=== PATIENT | female | born 1940 | race Caucasian/White ===

== ENCOUNTER → 2017-08-31 | Outpatient (CLI) | payer MEDICARE, OTHER ==
[~2017-08-31] MED LIST: ASPI-484 PO; BUDE180A IH; CHOL400T12 PO; CITA40TA5 PO; GABA300C10 PO; HYDR-926 PO; METF500T5 PO; MULT1TAB52 PO; OMEG-88 PO; VALS1TAB25 PO; VENL75CA6 PO
== END | disposition home or self-care (01) ==
LOC: NPLAB 12:30
PROVIDERS: ATTEND Nurse Practitioner Family
DX: E11.9 Type 2 diabetes mellitus without complications (principal)
CPT/HCPCS: 83036

== ENCOUNTER → 2017-12-08 | Outpatient (CLI) | payer MEDICARE, OTHER | END | disposition home or self-care (01) | LOC: LAB 12:25 | PROVIDERS: ATTEND Family Medicine | DX: E11.9 Type 2 diabetes mellitus without complications (principal); Z90.710 Acquired absence of both cervix and uterus; Z79.4 Long term (current) use of insulin | CPT/HCPCS: 83036 ==

== ENCOUNTER 2018-04-13 11:13 | Emergency (ER) | payer MEDICARE, OTHER ==
[~2018-04-13] VITALS: Ht 170.2 cm; Wt 66.2 kg
[~2018-04-13 11:13] MED LIST changes: +HYDR-3468 PO; -HYDR-926 PO; +METF500T17 PO; -METF500T5 PO
[2018-04-13 11:33] VITALS: BP 156/72
--- NOTE | 2018-04-13 11:33 | ER.PDOC ---
General Chief Complaint: Requesting Medical Care Stated Complaint: POSSIBLE BLOOD CLOT TRAVEL OUT OF US: No Time seen by MD: 11:44 Source: patient Exam Limitations: no limitations History of Present Illness Timing/Duration: 1 week Severity: mild Modifying Factors: improves with immobilization, improves with medication, improves with movement, improves with rest Allergies: Coded Allergies: Penicillins (Verified Allergy, Unknown, unknown, 04/13/18) Home Meds Reported Medications Aspirin (ASPIR 81) 81 Mg Tablet.dr, 81 MG PO DAILY 02/23/14 [place]-3S/Dha/Epa/Fish Oil/D3 (Fish Oil + D3 Softgel) 1 Each Capsule, 1 EACH PO DAILY, CAPSULE 02/23/14 Citalopram Hydrobromide (CITALOPRAM HBR) 40 Mg Tablet, 40 MG PO DAILY, TABLET 02/23/14 Valsartan/Hydrochlorothiazide (VALSARTAN-HCTZ 80-12.5 MG TAB) 1 Each Tablet, 1 EACH PO DAILY, TABLET 02/23/14 Budesonide (PULMICORT FLEXHALER) 180 Mcg Aer.pow.ba, 180 MCG IH PRN PRN for SHORTNESS OF BREATH 02/23/14 Gabapentin (GABAPENTIN) 300 Mg Capsule, 300 MG PO QID, CAPSULE 02/23/14 Multivitamin (MULTIVITAMINS) 1 Each Tablet, 1 EACH PO DAILY, TABLET 02/23/14 Cholecalciferol (Vitamin D3) (VITAMIN D-400) 400 Unit Tablet, 400 UNIT PO DAILY , TABLET 02/23/14 Venlafaxine Hcl (VENLAFAXINE HCL ER) 75 Mg Cap.er.24h, 75 MG PO DAILY 02/23/14 Hydrocodone Bit/Acetaminophen (NORCO 5-325 TABLET) 1 Each Tablet, 1 EACH PO TID PRN for PAIN, TABLET 02/23/14 Metformin Hcl (METFORMIN HCL) 500 Mg Tablet, 500 MG PO BID, TABLET 02/23/14 Past Medical History Medical History: diabetes Surgical History: cancer surgery, hysterectomy LMP (females 10-50): postmenopause Social History Smoking: non-smoker Alcohol Use: none Drug Use: none Review of Systems All Other Systems: Reviewed and Negative Physical Exam General Appearance: No Apparent Distress EENT: eyes nml inspection Neck: Non-Tender Respiratory: chest non-tender CVS: reg rate & rhythm Gastrointestinal: Normal Bowel Sounds Back: Normal Inspection Extremities: Pedal Edema, Swelling (L ANKLE), Other Neurologic/Psychiatric: informatics physician II-XII NML as Tested Skin: Normal Color Lymphatic: No Adenopathy Course Vitals & review Data Vital Sign - Last 24 Hours 04/13/18 04/13/18 04/13/18 04/13/18 11:30 11:31 11:33 12:37 Temp 97.6 97.6 97.6 97.6 97.6 97.6 97.6 97.6 Pulse 85 85 85 70 Resp 20 20 20 20 B/P (MAP) 156/72 (100) 120/70 (87) Pulse Ox 98 98 98 O2 Delivery Room Air Room Air Room Air Departure Time of Disposition: 12:22 Disposition: 01 HOME, SELF-CARE Impression: Primary Impression: Gout attack Condition: Stable Referrals: JESSICA RICARDOC (PCP) PRIMARY CARE PROVIDER Duration or Time Spent with Pa: 1 HR YUMIKO GUTHRIE MD Apr 13, 2018 11:33
--- NOTE | 2018-04-13 11:35 | NUR ---
ARRIVAL PATIENT ARRIVED TO ED4 AMBULATORY WITH FAMILY, C/O OF RIGHT FOOT WELLING FOR THE PAST 2 WEEKS, CALLED PCP AND WAS TOLD TO COME TO THE ED TO BE EVALUATED FOR A DVT. 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
[2018-04-13 12:37] VITALS: BP 120/70
--- NOTE | 2018-04-13 12:45 | DIREP ---
PROCEDURE:US DUPLEX EXTREM VEINS UNILATER/LIMITED-LT COMPARISON:None. INDICATIONS:LLE EDEMA TECHNIQUE:The left lower extremity was evaluated utilizing carrillo scale images with segmental compression, color Doppler, and spectral Doppler with respiratory variation and augmentation. FINDINGS: Common femoral vein:Patent Superficial femoral vein:Patent Popliteal vein:Patent Posterior tibial vein:Patent Peroneal vein:Patent Greater saphenous vein:Patent Waveforms: Within normal limits. Edema is identified in the left ankle. CONCLUSION:No evidence of deep venous or superficial venous thrombosis in the left lower extremity. Dictated by: DILIPA Physician on 04/13/2018 at 12:25 PM ld
[2018-04-13 13:00] VITALS: BP 120/64
[2018-04-13 13:14] VITALS: BP 120/64
== END 2018-04-13 13:00 | disposition home or self-care (01) ==
LOC: ER 11:13
DX: M10.9 Gout, unspecified (principal); E11.9 Type 2 diabetes mellitus without complications; Z90.710 Acquired absence of both cervix and uterus; Z79.84 Long term (current) use of oral hypoglycemic drugs; Z79.899 Other long term (current) drug therapy; Z88.0 Allergy status to penicillin
CPT/HCPCS: 99284; 93971

== ENCOUNTER → 2018-06-21 | Outpatient (CLI) | payer MEDICARE, OTHER | END | disposition home or self-care (01) | LOC: NPLAB 14:54 | PROVIDERS: ATTEND Nurse Practitioner Family | DX: E11.9 Type 2 diabetes mellitus without complications (principal) | CPT/HCPCS: 36415; 83036 ==

== ENCOUNTER 2019-11-22 16:30 | Inpatient (IN) | payer MEDICARE, OTHER ==
[~2019-11-22] VITALS: Ht 170.2 cm; Wt 64.9 kg
[~2019-11-22 16:30] MED LIST changes: -ASPI-484 PO; +ASPI-485 PO; +MULT-419 PO; -MULT1TAB52 PO
[2019-11-22 16:35] VITALS: BP 123/74
--- NOTE | 2019-11-22 16:41 | NUR ---
ARRIVAL PATIENT ARRIVED TO ED2 VIA GURNEY BY [facility], C/O OF ABDOMEN PAIN THAT STARTED TODAY, EMS CALLED AND INITIATED A 20G TO THE LEFT AC INFUSING NORMAL SALINE, EMS GAVE ZOFRAN 4MG IV AND IBUPROFEN 800MG BY MOUTH. PATIENT ASSISTED TO [facility], AGRONOMY TECHNICIAN APPLIED AND VITAL SIGNS OBTAINED, DOCTOR MAGDALENA NOTIFIED OF PATIENT ARRIVAL.
[2019-11-22 17:17] LABS: BASOPHIL % 0.2 % (0.0-0.2); EOSINOPHIL % 0.3 % (0.0-5.0); LYMPHOCYTES # 1.38 10^3/uL1 (1.0-4.8); LYMPHOCYTES % 15.2 % (24.0-44.0); MEAN CORP HGB 30.3 pg (26-34); MONOCYTES # 0.7 10^3/uL (0.3-0.8); MONOCYTES % 7.5 % (5.0-12.0); NEUTROPHILS % 76.5 % (41.0-85.0); PLATELET COUNT 226 10^3/uL (150-400); RED CELL DISTRIBUTION WIDTH 15.4 % (11.5-14.5)
[2019-11-22 17:35] LABS: CALCIUM 8.5 mg/dL (8.4-10.5); CARBON DIOXIDE 29.8 mmol/L (20.0-32)
--- NOTE | 2019-11-22 17:59 | ER.PDOC ---
General Chief Complaint: Abdomen Pain Stated Complaint: RIGHT UPPER QUADRANT PAIN Time seen by MD: 17:56 Source: patient Exam Limitations: no limitations History of Present Illness Initial Comments Upper abdominal pain on and off for 1 week, no nausea or vomiting. Severity/Quality: moderate, dullness Radiation: no radiation Associated Symptoms: denies symptoms Exacerbated by: nothing Relieved By: nothing Allergies: Coded Allergies: Penicillins (Verified Allergy, Unknown, unknown, 04/13/18) Home Meds Reported Medications Aspirin (ASPIR 81) 81 Mg Tablet.dr, 81 MG PO DAILY 02/23/14 [place]-3S/Dha/Epa/Fish Oil/D3 (Fish Oil + D3 Softgel) 1 Each Capsule, 1 EACH PO DAILY, CAPSULE 02/23/14 Citalopram Hydrobromide (CITALOPRAM HBR) 40 Mg Tablet, 40 MG PO DAILY, TABLET 02/23/14 Valsartan/Hydrochlorothiazide (VALSARTAN-HCTZ 80-12.5 MG TAB) 1 Each Tablet, 1 EACH PO DAILY, TABLET 02/23/14 Budesonide (PULMICORT FLEXHALER) 180 Mcg Aer.pow.ba, 180 MCG IH PRN PRN for SHORTNESS OF BREATH 02/23/14 Gabapentin (GABAPENTIN) 300 Mg Capsule, 300 MG PO QID, CAPSULE 02/23/14 Multivitamin (MULTIVITAMINS) 1 Each Tablet, 1 EACH PO DAILY, TABLET 02/23/14 Cholecalciferol (Vitamin D3) (VITAMIN D-400) 400 Unit Tablet, 400 UNIT PO DAILY, TABLET 02/23/14 Venlafaxine Hcl (VENLAFAXINE HCL ER) 75 Mg Cap.er.24h, 75 MG PO DAILY 02/23/14 Hydrocodone Bit/Acetaminophen (NORCO 5-325 TABLET) 1 Each Tablet, 1 EACH PO TID PRN for PAIN, TABLET 02/23/14 Metformin Hcl (METFORMIN HCL) 500 Mg Tablet, 500 MG PO BID, TABLET 02/23/14 Vital Signs First Vital Signs Date Time Temp Pulse Resp B/P (MAP) Pulse Ox O2 Delivery O2 Flow Rate FiO2 11/22/19 16:35 98.3 117 20 97 11/22/19 16:35 123/74 (90) Room Air Last Vital Signs Date Time Temp Pulse Resp B/P (MAP) Pulse Ox O2 Delivery O2 Flow Rate FiO2 11/22/19 18:06 98.3 116 20 123/49 (73) 97 Room Air Past Medical History Medical History: CVA/TIA/stroke, diabetes Surgical History: hysterectomy, tonsillectomy Social History Alcohol Use: none Drug Use: none Constitutional: no symptoms reported Respiratory: no symptoms reported Cardiovascular: no symptoms reported Gastrointestinal: see HPI Genitourinary: no symptoms reported Musculoskeletal: no symptoms reported All Other Systems: Reviewed and Negative Physical Exam General Appearance: No Apparent Distress, WD/WN Neck: Non-Tender, Full Range of Motion, Supple, Normal Inspection Respiratory: chest non-tender, lungs clear, normal breath sounds, no respiratory distress, no accessory muscle use Cardiovascular: Normal Peripheral Pulses, Regular Rate, Rhythm, No Edema, No Gallop, No JVD, No Murmur Gastrointestinal: Normal Bowel Sounds, No Organomegaly, No Pulsatile Mass, Guarding, Tenderness (mild upper abdomen) Back: Normal Inspection, No CVA Tenderness, No Vertebral Tenderness Extremities: Normal Range of Motion, Non-Tender, Normal Inspection, No Pedal Edema, No Calf Tenderness, Normal Capillary Refill, Pelvis Stable Neurologic/Psychiatric: algologist II-XII NML as Tested, No Motor/Sensory Deficits, Alert, Normal Mood/Affect, Oriented x 3 Skin: Normal Color, Warm/Dry Results/Orders Results/Orders Vital Signs Date Time Temp Pulse Resp B/P (MAP) Pulse Ox O2 Delivery O2 Flow Rate FiO2 11/22/19 18:06 98.3 116 20 123/49 (73) 97 Room Air 11/22/19 16:35 98.3 117 20 123/74 (90) 97 Room Air 11/22/19 16:35 98.3 117 20 11/22/19 16:35 98.3 117 20 97 Laboratory Tests Test 11/22/19 17:10 11/22/19 18:18 White Blood Count 9.1 10^3/uL (4.5-11.0) Red Blood Count 2.84 10^6/uL (4.00-5.20) L Hemoglobin 8.6 g/dL (12.0-15.0) L Hematocrit 24.4 % (36.0-46.0) L Mean Corpuscular Volume 85.9 fL (78-100) Mean Corpuscular Hemoglobin 30.3 pg (26-34) Mean Corpuscular Hemoglobin Concent 35.2 g/dL (33-36.5) Red Cell Distribution Width 15.4 % (11.5-14.5) H Platelet Count 226 10^3/uL (150-400) Mean Platelet Volume 8.2 fL (7.8-11.0) Neutrophils (%) (Auto) 76.5 % (41.0-85.0) Lymphocytes (%) (Auto) 15.2 % (24.0-44.0) L Monocytes (%) (Auto) 7.5 % (5.0-12.0) Neutrophils # (Auto) 7.0 10^3/uL (1.8-7.7) Lymphocytes # (Auto) 1.38 10^3/uL1 (1.0-4.8) Monocytes # (Auto) 0.7 10^3/uL (0.3-0.8) Absolute Immature Granulocyte (auto 0.03 10^3 u/L (0-2) Absolute Eosinophils (auto) 0.0 10^3/uL (0.0-0.2) Immature Granulocytes % 0.30 % (0.00-0.50) Eosinophils % 0.3 % (0.0-5.0) Basophils % 0.2 % (0.0-0.2) Basophils # 0.0 10^3/uL (0.0-0.1) Prothrombin Time 10.1 SEC (9.3-11.3) Prothrombin Time INR (Non-Therap) 1.0 Activated Partial Thromboplast Time 21.4 SEC (24.67-30.72) Sodium Level 130 mmol/L (132-145) L Potassium Level 3.5 mmol/L (3.6-5.2) L Chloride Level 93.0 mmol/L (96-109) L Carbon Dioxide Level 29.8 mmol/L (20.0-32) Anion Gap 10.7 Blood Urea Nitrogen 15 mg/dL (7-18) Creatinine 1.33 mg/dL (0.59-1.40) Estimated GFR () 46.7 (>/=60) Est GFR (CKD-EPI)(Non-Afr [place]) 38.6 (>/=60) BUN/Creatinine Ratio 11.0 Glucose Level 187 mg/dL (70-110) H Calcium Level 8.5 mg/dL (8.4-10.5) Total Bilirubin 0.5 mg/dL (0.2-1.0) Aspartate Amino Transferase (AST) 11 U/L (0-35) Alanine Aminotransferase (ALT) 15 U/L (12-78) Alkaline Phosphatase 74 U/L (50-136) Total Protein 6.1 g/dL (6.4-8.2) L Albumin 3.0 g/dL (3.4-5.0) L Globulin 3.1 Amylase Level 32 U/L (25-115) Lipase 93 U/L (114-286) L Helicobacter pylori Screen POSITIVE (NEGATIVE) Urine Collection Type VOID Urine Color STRAW (YELLOW) Urine Appearance CLEAR (CLEAR) Urine Bilirubin NEGATIVE MG/DL (NEGATIVE) Urine Ketones NEGATIVE (NEGATIVE) Urine Specific [place] 1.005 (1.005-1.035) Urine pH 8.0 (5.0-6.0) Urine Protein NEGATIVE (NEGATIVE) Urine Urobilinogen NEGATIVE (NEGATIVE) Urine Nitrate NEGATIVE (NEGATIVE) Urine Leukocyte Esterase NEGATIVE (NEGATIVE) Urine Blood 50 2+ (NEGATIVE) H Urine RBC 0-2 RBC/HPF (NONE SEEN) Urine WBC 0-2 WBC/HPF (0-2) Urine Squamous Epithelial Cells RARE #/HPF (FEW) Urine Bacteria NONE SEEN (NONE SEEN) Urine Glucose NORMAL (NEGATIVE) Progress Progress Care of patient transferred to Dr. Chu at 7pm Consult/PCP Time Consult/PCP Called: 20:11 Consult/PCP: Dr. Haddad Reason/Comments: will admit observation Departure Time of Disposition: 20:11 Disposition: 09 ADMITTED INPATIENT Impression: Primary Impression: Duodenitis Condition: Stable Referrals: JESSICA RICARDO-C (PCP) PRIMARY CARE PROVIDER Duration or Time Spent with Pa: 10 min KEMI NICHOLS MD Nov 22, 2019 17:59 DARON CHU DO Nov 22, 2019 20:12
[2019-11-22 18:06] VITALS: BP 123/49
--- NOTE | 2019-11-22 18:12 | NUR ---
CAT SCAN PATIENT TO AND FROM CAT SCAN WITH LON FROM RADIOLOGY.
--- NOTE | 2019-11-22 18:13 | NUR ---
UA UA COLLECTED AND SENT TO LAB.
[2019-11-22 18:32] LABS: APPEARANCE,URINE CLEAR (CLEAR); BILIRUBIN,URINE NEGATIVE (NEGATIVE); UA COLOR STRAW (YELLOW)
[2019-11-22 18:33] LABS: UROBILINOGEN,URINE NEGATIVE (NEGATIVE)
--- NOTE | 2019-11-22 19:04 | DIREP ---
PROCEDURE:CT ABD/PELVIS WITH CONTRAST TECHNIQUE:No oral contrast was given. CT abdomen pelvis with contrast. The images were viewed at lung and soft tissue settings. Sagittal and coronal reconstructions are provided. COMPARISON:None. INDICATIONS:ABD PAIN FINDINGS: LOWER CHEST:Emphysematous changes in the lung bases. Right basilar atelectasis. LIVER:Normal. BILIARY:Post cholecystectomy. PANCREAS:Atrophy. SPLEEN:Normal. URINARY TRACT:Left renal cyst measuring 1.6 cm. Multiple other cysts, some which are too small to adequately characterize. ADRENALS:Normal. AORTA/VASCULAR:Atherosclerotic disease of the aorta and its major branches. RETROPERITONEUM:Normal. BOWEL/MESENTERY:Large stool burden in the rectum suggesting impaction. Circumferential wall thickening of the proximal stomach. Wall thickening of the gastro duodenal junction and descending duodenum consistent with duodenitis. CT evaluation of the stomach and proximal duodenum is limited and follow-up to resolution is recommended to exclude neoplasm. Proximal duodenal diverticulum is seen. If necessary endoscopy could be performed. The appendix is not seen. Evaluation of bowel is limited without oral contrast. ABDOMINAL WALL:Normal. PELVIS:Post hysterectomy. Collapsed bladder. BONES:Anterolisthesis of L4 on L5 measuring 2 mm. Degenerative changes in the spine. Internal fixation of the left hip. Old healed fracture in the left superior and inferior pubic ramus. Fracture lines are still visible, correlate with clinical presentation and timeline, this could suggest either poor healing or acute on chronic fractures. OTHER:Normal. CONCLUSION: 1. Wall thickening with surrounding fat stranding of the gastro duodenal junction and proximal duodenum consistent duodenitis or inflammatory/infectious process. Evaluation of the stomach and proximal duodenum is limited on CT and follow-up to resolution is recommended to exclude neoplasm. 2. Large stool burden the rectum consistent with impaction. 3. Old healing fractures in the superior and inferior pubic ramus. Fracture lines are still visible with surrounding callus formation, this could either suggest subacute healing fracture, acute on chronic fracture, or poor healing. Correlate with clinical timeline of trauma. 4. Other findings as above. Dictated by: Dariusz Haddad MD on 11/22/2019 at 06:53 PM
--- NOTE | 2019-11-22 19:15 | PCM.EKG ---
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
--- NOTE | 2019-11-22 19:37 | NUR ---
Assisted to bedside commode and voided without difficulty. Reports she was "a little dizzy" prior to transferring from [facility] [place] [facility] Had pt sit up on bedside for a few minutes until dizziness subsided.
[2019-11-22 19:41] VITALS: BP 123/66
--- NOTE | 2019-11-22 20:30 | NUR ---
MS ROOM 328. REPORT TO BRANDON WALKER RN. PT CARE RELINQUISHED. Addendum: 11/22/19 at 2240 by LISA REPORT TIME 2229
[2019-11-22 20:41] VITALS: BP 112/60
[2019-11-22] MEDS ORDERED: TYLENOL PO PRN (21:00)
[2019-11-22] MEDS ORDERED: ZOFRAN IV PRN (21:00)
[2019-11-22] MEDS ORDERED: ZOFRAN IV STA (21:11)
[2019-11-22] MEDS ORDERED: MORPHINE SULFATE IV STA (21:11)
[2019-11-22] MEDS ORDERED: FLAGYL 500MG/ 100 ML NS 100 ML IV ONE (21:14)
[2019-11-22] MEDS ORDERED: ZOFRAN ONE (21:15)
[2019-11-22] MEDS ORDERED: MORPHINE SULFATE ONE (21:15)
[2019-11-22] MEDS: FLAGYL 500MG/ 100 ML NS 100 ML IV SCH (21:35)
[2019-11-22 21:41] VITALS: BP 112/65
--- NOTE | 2019-11-22 21:49 | PCM.HP ---
History of Present Illness Reason for Visit: (1) H. pylori duodenitis ICD Code: K29.80 - Duodenitis without bleeding; B96.81 - Helicobacter pylori [H. pylori] as the cause of diseases classified elsewhere SNOMED: 749638780 (2) Duodenitis ICD Code: K29.80 - Duodenitis without bleeding SNOMED: 27022979 (3) Fecal impaction in rectum ICD Code: K56.41 - Fecal impaction SNOMED: 60782834 Hx of Present Illness Upper abdominal pain on and off for 1 week. Patient states that she has not been eating or drinking well today. She states that she passed stool around 3:[address] scan since she has a fecal impaction so she is likely passing stool around the impaction. Patient is familiar with what H. pylori he has but she does not recall being diagnosed or treated for an H. pylori infection her H. pylori screen is positive we will treat empirically with antibiotics and will cover duodenitis and H. pylori. Patient will need follow-up EGD outpatient once infection is treated to biopsy for cure of H. pylori and evaluate further for potential neoplasm given bowel wall thickening. We discussed use of an enema tonight to help clear her fecal impaction Travel History EBOLA RISK:Travel to/contact w: No Review of Systems Constitutional: No: Fever, Chills, Sweats, Weakness, Malaise, Other Eyes: No: Pain, Vision change, Conjunctivae inflammation, Eyelid inflammation, Other, Redness ENT: No: Ear pain, Ear discharge, Nose pain, Nose discharge, Nose congestion, Mouth pain, Mouth swelling, Throat pain, Throat swelling, Other Respiratory: No: Cough, Dry, Shortness of breath, SOB with excertion, Wheezing, Hemoptysis, Pleuritic Pain, Sputum, Wheezing, Other Cardiovascular: No: Chest Pain, Palpitations, Orthopnea, Paroxysmal Noc. Dyspnea, Edema, Lt Headedness, Other Gastrointestinal: Abdominal Pain, Constipation Genitourinary: No Dysuria, No Frequency, No Incontinence, No Hematuria, No R etention, No Other Musculoskeletal: No: other, neck pain, shoulder pain, arm pain, back pain, hand pain, leg pain, foot pain Skin: No: Rash, Lesions, Jaundice, Bruising, Other Neurological: No: Weakness, Numbness, Incoordination, Change in speech, Confusion, Seizures, Other Allergies: Coded Allergies: Penicillins (Verified Allergy, Unknown, unknown, 04/13/18) Scheduled Aspirin (Aspir 81), 81 MG PO DAILY, (Reported) Cholecalciferol (Vitamin D3) (Vitamin D-400), 400 UNIT PO DAILY, (Reported) Citalopram Hydrobromide (Citalopram Hbr), 40 MG PO DAILY, (Reported) Gabapentin (Gabapentin), 300 MG PO QID, (Reported) Metformin Hcl (Metformin Hcl), 500 MG PO BID, (Reported) Multivitamin (Multivitamins), 1 EACH PO DAILY, (Reported) [place]-3S/Dha/Epa/Fish Oil/D3 (Fish Oil + D3 Softgel), 1 EACH PO DAILY, (Reported) Valsartan/Hydrochlorothiazide (Valsartan-Hctz 80-12.5 Mg Tab), 1 EACH PO DAILY, (Reported) Venlafaxine Hcl (Venlafaxine Hcl Er), 75 MG PO DAILY, (Reported) Scheduled PRN Budesonide (Pulmicort Flexhaler), 180 MCG IH PRN PRN for SHORTNESS OF BREATH, (Reported) Hydrocodone Bit/Acetaminophen ([place] 5-325 Tablet), 1 EACH PO TID PRN for PAIN, (Reported) VTE VTE Risk Score VTE Risk: Score 0-1 = Low Risk (Aggressive mobilization; early ambulation; no VTE prophylaxis required) Score 2: Moderate Risk (Intermittent/Pneumatic Compression Device OR Lovenox/Heparin/Coumadin) Score 3-4: High Risk (Intermittent/Pneumatic Compression Device AND Lovenox/Heparin/Coumadin) Score > or =5: Highest Risk (Intermittent/Pneumatic Compression Device AND Lovenox/Heparin/Coumadin) Exam Vital Signs Vital Signs Date Time Temp Pulse Resp B/P (MAP) Pulse Ox O2 Delivery O2 Flow Rate FiO2 11/22/19 18:06 98.3 116 20 123/49 (73) 97 Room Air General Appearance: Alert, Oriented X3 HEENT: Atraumatic, Mucous membr. moist/pink Respiratory: Clear to auscultation Cardiovascular: Regular rate Abdominal: Other (Abdomen is mildly distended but soft she does have tenderness upper epigastric region denies overt chest pain) Extremities: Normal pulses Skin: No breakdown Neuro: Normal speech, Strength at 5/5 X4 ext, Normal tone, Sensation intact, Cranial nerves 3-12 NL Assessment/Plan Assessment/Plan Assessment/Plan Assessment: 79-year-old female with past medical history of hyperlipidemia, diab etes, and hypertension who presents with epigastric pain for several days. She states that she has passed stool today but CT scan after bowel movement shows large fecal impaction. H. pylori blood screen positive in the setting of duodenitis on CT scan with bowel wall thickening. Patient is familiar with what H. pylori he has but she does not recall being diagnosed or treated for an H. pylori infection her. No ischemic changes on EKG troponin is pending at this time Plan: H. pylori screen is positive we will treat empirically with antibiotics and will cover duodenitis and H. pylori. Patient will need follow-up EGD outpatient once infection is treated to biopsy for cure of H. pylori and evaluate further for potential neoplasm given bowel wall thickening. We will treat fecal impaction with enema tonight. Clear liquid diet with IV fluids and advance diet as tolerated. Troponin to rule out cardiac ischemia given epigastric abdominal pain with no clear ischemic changes on EKG Problems: (1) H. pylori duodenitis ICD Code: K29.80 - Duodenitis without bleeding; B96.81 - Helicobacter pylori [H. pylori] as the cause of diseases classified elsewhere SNOMED: 580341331 (2) Fecal impaction in rectum Status: Acute ICD Code: K56.41 - Fecal impaction SNOMED: 03266884 (3) Duodenitis Status: Acute ICD Code: K29.80 - Duodenitis without bleeding SNOMED: 33680887 Patient History: Diabetes mellitus 34 FATHER FH: cancer 32 MOTHER FH: heart attack 34 FATHER RAMILA REYNA MD Nov 22, 2019 21:48
--- NOTE | 2019-11-22 21:58 | NUR ---
DR REYNA IN ROOM WITH PT
[2019-11-22] MEDS ORDERED: DILAUDID IV PRN (22:00)
[2019-11-22] MEDS: BIAXIN PO SCH (22:30)
[2019-11-22] MEDS ORDERED: NS 1000ML/KCL 20MEQ 1,000 ML IV ONE (22:30)
[2019-11-22] MEDS ORDERED: NS 500ML 500 ML IV ONE (22:33)
[2019-11-22] MEDS ORDERED: MAGNESIUM CITRATE PO STA (22:36)
[2019-11-22] MEDS: CIPRO 200 ML IV SCH (22:41)
[2019-11-22 22:50] VITALS: BP 136/61
[2019-11-22] MEDS ORDERED: PHENERGAN IM PRN (23:00)
[2019-11-22] MEDS ORDERED: PHENERGAN ONE (23:13)
[2019-11-22] MEDS ORDERED: NS 25ML 25 ML IV ONE (23:13)
[2019-11-22] MEDS: PROTONIX IV IV SCH (23:44)
[2019-11-23] MEDS ORDERED: PHENERGAN IV PRN (00:30)
[2019-11-23 05:14] VITALS: BP 90/54
[2019-11-23 05:55] LABS: BASOPHIL % 0.3 % (0.0-0.2); EOSINOPHIL # 0.1 10^3/uL (0.0-0.2); LYMPHOCYTES # 1.92 10^3/uL1 (1.0-4.8); LYMPHOCYTES % 20.4 % (24.0-44.0); MEAN CORP HGB 30.4 pg (26-34); MONOCYTES # 0.7 10^3/uL (0.3-0.8); MONOCYTES % 7.4 % (5.0-12.0); NEUTROPHIL # 6.7 10^3/uL (1.8-7.7); NEUTROPHILS % 70.7 % (41.0-85.0); PLATELET COUNT 218 10^3/uL (150-400); RED CELL DISTRIBUTION WIDTH 15.8 % (11.5-14.5)
--- NOTE | 2019-11-23 06:08 | NUR ---
ENEMA PT REFUSED ENEMA TWICE DR REYNA SAID WE WOULD GIVE HER TIME TO THINK ABOUT IT
[2019-11-23 06:11] LABS: CALCIUM 8.9 mg/dL (8.4-10.5); CARBON DIOXIDE 28.7 mmol/L (20.0-32)
--- NOTE | 2019-11-23 07:15 | PCM.EKG ---
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: TG : 1940 Requested By: DARON HERNANDEZ Order Number: [id number] Reading MD: Carmina Hernandez Measurements Intervals [place] Rate: 96 P: 54 MA: 146 QRS: -29 QRSD: 91 T: 35 QT: 417 QTc: 527 Interpretive Statements Sinus rhythm Multiple premature complexes, vent & supraven Borderline left axis deviation Abnormal R-wave progression, late transition Borderline T abnormalities, anterior leads Prolonged QT interval Compared to ECG 11/22/2019 18:59:42 T-wave abnormality now present Electronically Signed On 11-26-2019 7:21:56 CDT by Carmina Hernandez Please click the below link to view image of tracing.
[2019-11-23 07:29] VITALS: BP 98/57
[2019-11-23] MEDS ORDERED: PHENERGAN IM PRN (07:30)
[2019-11-23] MEDS: BIAXIN PO SCH ×2 (08:32→21:47)
[2019-11-23] MEDS: PROTONIX IV IV SCH (08:33)
[2019-11-23] MEDS: FLAGYL 500MG/ 100 ML NS 100 ML IV SCH ×2 (08:33→21:47)
[2019-11-23] MEDS: CIPRO 200 ML IV SCH ×3 (09:43→22:48)
[2019-11-23] MEDS ORDERED: [UNRECOGNIZED DRUG - SUPPLY] RC ONE (10:00)
[2019-11-23] MEDS ORDERED: BISAC-EVAC RC ONE (10:30)
--- NOTE | 2019-11-23 10:30 | NUR ---
DISCHARGE PLAN CASE MANAGEMENT VISITED WITH PT AT BEDSIDE CONCERNING DISCHARGE PLAN AND NEEDS. LIVES AT HOME ALONE. HAS SUPPORTIVE FAMILY. HAS DME INCLUDING WALKER AND SHOWER CHAIR. UTILIZES WALKER FOR AMBULATION. DENIES NEED FOR HOME OXYGEN. CURRENTLY HAS [facility] HH IN PLACE. CM CONTACTED [facility] REGARDING ADMISSION TO THIS FACILITY. PCP IS JESSICA VU DENTAL INSURANCE BILLER AT [facility]. DC PLAN IS TO DC HOME WITH [facility] HH TO FOLLOW. CM LEFT CONTACT INFORMATION AT BEDSIDE. CM WILL CONTINUE TO FOLLOW FOR DC NEEDS.
--- NOTE | 2019-11-23 11:00 | NUR ---
ENEMA PATIENT TOLERATED ENEMA WITH NO S/S OF DISTRESS, EFFECTIVE WITH LARGE BM.
[2019-11-23 12:39] VITALS: BP 100/56
--- NOTE | 2019-11-23 15:54 | PRM.PN ---
Subjective Subjective Date: Nov 23, 2019 Time: 15:51 Subjective Patient was resistant to the idea of utilizing an enema overnight to resolve her fecal impaction we tried oral medications without success this morning and patient then agreed to allow an enema administered by nursing staff. Since the enema she has had excellent stool output and her pain and distention have decreased. She is resting comfortably in bed at the time of my exam Patient History: Diabetes mellitus 33 FATHER FH: cancer 32 MOTHER FH: heart attack 33 FATHER VTE VTE Risk Total Score: 3 VTE Risk Score VTE Risk: Score 0-1 = Low Risk (Aggressive mobilization; early ambulation; no VTE prophylaxis required) Score 2: Moderate Risk (Intermittent/Pneumatic Compression Device OR Lovenox/Heparin/Coumadin) Score 3-4: High Risk (Intermittent/Pneumatic Compression Device AND Lovenox/Heparin/Coumadin) Score > or =5: Highest Risk (Intermittent/Pneumatic Compression Device AND Lovenox/Heparin/Coumadin) Antico:Hep/LMWH/Coum/Xarelto: Yes Mechanical device ordered: Yes Review of Systems Constitutional: No: Fever, Chills, Sweats, Weakness, Malaise, Other Eyes: No: Pain, Vision change, Conjunctivae inflammation, Eyelid inflammation, Other, Redness ENT: No: Ear pain, Ear discharge, Nose pain, Nose discharge, Nose congestion, Mouth pain, Mouth swelling, Throat pain, Throat swelling, Other Respiratory: No: Cough, Dry, Shortness of breath, SOB with excertion, Wheezing, Hemoptysis, Pleuritic Pain, Sputum, Wheezing, Other Cardiovascular: No: Chest Pain, Palpitations, Orthopnea, Paroxysmal Noc. Dyspnea, Edema, Lt Headedness, Other Gastrointestinal: Abdominal Pain, Constipation Genitourinary: No Dysuria, No Frequency, No Incontinence, No Hematuria, No Retention, No Other Musculoskeletal: No: other, neck pain, shoulder pain, arm pain, back pain, hand pain, leg pain, foot pain Skin: No: Rash, Lesions, Jaundice, Bruising, Other Neurological: No: Weakness, Numbness, Incoordination, Change in speech, Confusion, Seizures, Other Allergies: Coded Allergies: Penicillins (Verified Allergy, Unknown, unknown, 04/13/18) Scheduled Aspirin (Aspir 81), 81 MG PO DAILY, (Reported) Cholecalciferol (Vitamin D3) (Vitamin D-400), 400 UNIT PO DAILY, (Reported) Citalopram Hydrobromide (Citalopram Hbr), 40 MG PO DAILY, (Reported) Gabapentin (Gabapentin), 300 MG PO QID, (Reported) Metformin Hcl (Metformin Hcl), 500 MG PO BID, (Reported) Multivitamin (Multivitamins), 1 EACH PO DAILY, (Reported) [place]-3S/Dha/Epa/Fish Oil/D3 (Fish Oil + D3 Softgel), 1 EACH PO DAILY, (Reported) Valsartan/Hydrochlorothiazide (Valsartan-Hctz 80-12.5 Mg Tab), 1 EACH PO DAILY, (Reported) Venlafaxine Hcl (Venlafaxine Hcl Er), 75 MG PO DAILY, (Reported) Scheduled PRN Budesonide (Pulmicort Flexhaler), 180 MCG IH PRN PRN for SHORTNESS OF BREATH, (Reported) Hydrocodone Bit/Acetaminophen ([place]pearl 5-325 Tablet), 1 EACH PO TID PRN for PAIN, (Reported) Objective Vitals and I/O Vital Sign - Last 24 Hours 11/22/19 11/22/19 11/22/19 11/22/19 16:35 16:35 16:35 18:06 Temp 98.3 98.3 98.3 98.3 Pulse 117 117 117 116 Resp 20 B/P (MAP) 123/74 (90) 123/49 (73) Pulse Ox 97 97 97 O2 Delivery Room Air Room Air 11/22/19 11/22/19 11/22/19 11/22/19 19:41 20:41 21:41 22:50 Temp 97.4 Pulse 74 71 74 72 Resp 18 20 18 18 B/P (MAP) 123/66 (85) 112/60 (77) 112/65 (81) 136/61 (86) Pulse Ox 96 95 95 94 O2 Delivery Room Air Room Air Room Air Room Air 11/23/19 11/23/19 11/23/19 11/23/19 05:14 07:14 07:29 09:03 Temp 97.4 98.0 Pulse 77 62 Resp 18 18 B/P (MAP) 90/54 (66) 98/57 (71) Pulse Ox 93 92 O2 Delivery Room Air Room Air Room Air Room Air 11/23/19 11/23/1920 12:39 14:04 14:34 Temp 98.0 Pulse 74 Resp 18 B/P (MAP) 100/56 (71) Pulse Ox 92 O2 Delivery Room Air Room Air Nasal Cannula O2 Flow Rate 2.00 Intake and Output 11/23/19 07:00 Intake Total 100 ml Balance 100 ml General: Alert, Oriented X3 HEENT: Atraumatic, Mucous membr. moist/pink Lungs: Clear to auscultation Heart: Regular rate Abdomen: Normal bowel sounds, Soft, Other (Abdomen is mildly distended but soft she does have tenderness upper epigastric region denies overt chest pain) Extremities: Normal pulses Neuro: Normal speech, Strength at 5/5 X4 ext, Normal tone, Sensation intact, Cranial nerves 3-12 NL All Results(Lab/Rad) Laboratory Tests Test 11/22/19 17:10 11/22/19 18:18 11/22/19 22:33 11/23/19 05:45 White Blood Count 9.1 10^3/uL 9.4 10^3/uL Red Blood Count 2.84 10^6/uL 2.93 10^6/uL Hemoglobin 8.6 g/dL 8.9 g/dL Hematocrit 24.4 % 26.6 % Mean Corpuscular Volume 85.9 fL 90.8 fL Mean Corpuscular Hemoglobin 30.3 pg 30.4 pg Mean Corpuscular Hemoglobin Concent 35.2 g/dL 33.5 g/dL Red Cell Distribution Width 15.4 % 15.8 % Platelet Count 226 10^3/uL 218 10^3/uL Mean Platelet Volume 8.2 fL 8.2 fL Neutrophils (%) (Auto) 76.5 % 70.7 % Lymphocytes (%) (Auto) 15.2 % 20.4 % Monocytes (%) (Auto) 7.5 % 7.4 % Neutrophils # (Auto) 7.0 10^3/uL 6.7 10^3/uL Lymphocytes # (Auto) 1.38 10^3/uL1 1.92 10^3/uL1 Monocytes # (Auto) 0.7 10^3/uL 0.7 10^3/uL Absolute Immature Granulocyte (auto 0.03 10^3 u/L 0.02 10^3 u/L Absolute Eosinophils (auto) 0.0 10^3/uL 0.1 10^3/uL Immature Granulocytes % 0.30 % 0.20 % Eosinophils % 0.3 % 1.0 % Basophils % 0.2 % 0.3 % Basophils # 0.0 10^3/uL 0.0 10^3/uL Prothrombin Time 10.1 SEC Prothrombin Time INR (Non-Therap) 1.0 Activated Partial Thromboplast Time 21.4 SEC Sodium Level 130 mmol/L 131 mmol/L Potassium Level 3.5 mmol/L 3.6 mmol/L Chloride Level 93.0 mmol/L 95.0 mmol/L Carbon Dioxide Level 29.8 mmol/L 28.7 mmol/L Anion Gap 10.7 10.9 Blood Urea Nitrogen 15 mg/dL 13 mg/dL Creatinine 1.33 mg/dL 1.48 mg/dL Estimated GFR () 46.7 41.3 Est GFR (CKD-EPI)(Non-Afr Moroccan) 38.6 34.1 BUN/Creatinine Ratio 11.0 8.0 Glucose Level 187 mg/dL 149 mg/dL Calcium Level 8.5 mg/dL 8.9 mg/dL Total Bilirubin 0.5 mg/dL 0.4 mg/dL Aspartate Amino Transf (AST/SGOT) 11 U/L 12 U/L Alanine Aminotransferase (ALT/SGPT) 15 U/L 17 U/L Alkaline Phosphatase 74 U/L 77 U/L Total Protein 6.1 g/dL 6.2 g/dL Albumin 3.0 g/dL 3.0 g/dL Globulin 3.1 3.2 Amylase Level 32 U/L Lipase 93 U/L Helicobacter pylori Screen POSITIVE Urine Collection Type VOID Urine Color STRAW Urine Appearance CLEAR Urine Bilirubin NEGATIVE MG/DL Urine Ketones NEGATIVE Urine Specific [place] 1.005 Urine pH 8.0 Urine Protein NEGATIVE Urine Urobilinogen NEGATIVE Urine Nitrate NEGATIVE Urine Leukocyte Esterase NEGATIVE Urine Blood 50 2+ Urine RBC 0-2 RBC/HPF Urine WBC 0-2 WBC/HPF Urine Squamous Epithelial Cells RARE #/HPF Urine Bacteria NONE SEEN Urine Glucose NORMAL Troponin I < 0.02 ng/mL Test 11/23/19 07:26 Bedside Glucose 135 Current Medications Medications (Trade) Dose Ordered Sig/Rupali Route PRN Reason Start Time Stop Time Status Last Admin Dose Admin Acetaminophen (Tylenol) 1,000 mg Q6H PRN PO PAIN 1 - 3 11/22/19 21:00 12/22/19 20:59 11/23/19 05:19 Ondansetron HCl (Zofran) 4 mg Q4H PRN IV NAUSEA / VOMITING 11/22/19 21:00 12/22/19 20:59 Metronidazole 100 ml @ 100 mls/hr Q12H IV 11/22/19 21:00 12/22/19 20:59 11/23/19 08:33 Morphine Sulfate (Morphine Sulfate) 4 mg STAT STAT IV 11/22/19 21:11 11/22/19 21:13 DC 11/22/19 21:35 Ondansetron HCl (Zofran) 4 mg STAT STAT IV 11/22/19 21:11 11/22/19 21:13 DC 11/22/19 21:34 Metronidazole 100 ml @ ud STK-MED ONCE IV 11/22/19 21:14 11/22/19 21:16 DC Ondansetron HCl (Zofran) 4 mg STK-MED ONCE .ROUTE 11/22/19 21:15 11/22/19 21:17 DC Morphine Sulfate (Morphine Sulfate) 4 mg STK-MED ONCE .ROUTE 11/22/19 21:15 11/22/19 21:17 DC Hydromorphone HCl (Dilaudid) 0.5 mg Q4H PRN IV PAIN 7 - 10 11/22/19 22:00 11/23/19 09:54 DC Potassium Chloride/Sodium Chloride 1,000 ml @ 100 mls/hr Q10H ONCE IV 11/22/19 22:30 11/23/19 08:29 DC 11/22/19 23:48 Clarithromycin (Biaxin) 500 mg BID PO 11/22/19 22:30 12/22/19 22:29 11/23/19 08:32 Pantoprazole Sodium (Protonix Iv) 40 mg DAILY IV 11/22/19 22:30 12/22/19 22:29 11/23/19 08:33 Sodium Chloride 500 ml @ ud STK-MED ONCE IV 11/22/19 22:33 11/22/19 22:35 DC Magnesium Citrate (Magnesium Citrate) 150 ml STAT STAT PO 11/22/19 22:36 11/23/19 00:27 DC 11/22/19 23:44 Promethazine HCl (Phenergan) 25 mg BID PRN IM NAUSEA/VOMITING 11/22/19 23:00 8/14/20 00:09 DC Sodium Chloride 25 ml @ ud STK-MED ONCE IV 11/22/19 23:13 11/22/19 23:14 DC Promethazine HCl (Phenergan) 25 mg BID PRN IV NAUSEA/VOMITING 11/23/19 00:30 11/23/19 07:12 DC 11/22/19 23:20 Promethazine HCl (Phenergan) 25 mg STK-MED ONCE .ROUTE 11/22/19 23:13 11/23/19 00:09 DC Promethazine HCl (Phenergan) 25 mg BID PRN IM NAUSEA/VOMITING 11/23/19 07:30 12/23/19 07:29 Glycerin (Sani-Supp) 1 each OT ONCE RC 11/23/19 10:00 11/23/19 10:02 DC Bisacodyl (Bisac-Evac) 10 mg OT ONCE RC 11/23/19 10:30 11/23/19 10:31 DC 11/23/19 11:14 Course Sepsis Screening Results: Posi: NEGATIVE Sepsis Qualifier/Stage: NO DEFINITE RISK Duration or Total Time Spent w: 10 min Vitals & review Data Vital Sign - Last 24 Hours 11/22/19 11/22/19 11/22/19 11/22/19 16:35 16:35 16:35 18:06 Temp 98.3 98.3 98.3 98.3 Pulse 117 117 117 116 Resp 20 20 20 20 B/P (MAP) 123/74 (90) 123/49 (73) Pulse Ox 97 97 97 O2 Delivery Room Air Room Air 11/22/19 11/22/19 11/22/19 11/22/19 19:41 20:41 21:41 22:50 Temp 97.4 Pulse 74 71 74 72 Resp 18 20 18 18 B/P (MAP) 123/66 (85) 112/60 (77) 112/65 (81) 136/61 (86) Pulse Ox 96 95 95 94 O2 Delivery Room Air Room Air Room Air Room Air 11/23/19 11/23/19 11/23/19 11/23/19 05:14 07:14 07:29 09:03 Temp 97.4 98.0 Pulse 77 62 Resp 18 18 B/P (MAP) 90/54 (66) 98/57 (71) Pulse Ox 93 92 O2 Delivery Room Air Room Air Room Air Room Air 11/23/19 11/23/19 11/23/19 12:39 14:04 14:34 Temp 98.0 Pulse 74 Resp 18 B/P (MAP) 100/56 (71) Pulse Ox 92 O2 Delivery Room Air Room Air Nasal Cannula O2 Flow Rate 2.00 Intake and Output 11/23/19 07:00 Intake Total 100 ml Balance 100 ml Laboratory Tests Test 11/22/19 17:10 11/22/19 18:18 11/22/19 22:33 11/23/19 05:45 White Blood Count 9.1 10^3/uL 9.4 10^3/uL Red Blood Count 2.84 10^6/uL 2.93 10^6/uL Hemoglobin 8.6 g/dL 8.9 g/dL Hematocrit 24.4 % 26.6 % Mean Corpuscular Volume 85.9 fL 90.8 fL Mean Corpuscular Hemoglobin 30.3 pg 30.4 pg Mean Corpuscular Hemoglobin Concent 35.2 g/dL 33.5 g/dL Red Cell Distribution Width 15.4 % 15.8 % Platelet Count 226 10^3/uL 218 10^3/uL Mean Platelet Volume 8.2 fL 8.2 fL Neutrophils (%) (Auto) 76.5 % 70.7 % Lymphocytes (%) (Auto) 15.2 % 20.4 % Monocytes (%) (Auto) 7.5 % 7.4 % Neutrophils # (Auto) 7.0 10^3/uL 6.7 10^3/uL Lymphocytes # (Auto) 1.38 10^3/uL1 1.92 10^3/uL1 Monocytes # (Auto) 0.7 10^3/uL 0.7 10^3/uL Absolute Immature Granulocyte (auto 0.03 10^3 u/L 0.02 10^3 u/L Absolute Eosinophils (auto) 0.0 10^3/uL 0.1 10^3/uL Immature Granulocytes % 0.30 % 0.20 % Eosinophils % 0.3 % 1.0 % Basophils % 0.2 % 0.3 % Basophils # 0.0 10^3/uL 0.0 10^3/uL Prothrombin Time 10.1 SEC Prothrombin Time INR (Non-Therap) 1.0 Activated Partial Thromboplast Time 21.4 SEC Sodium Level 130 mmol/L 131 mmol/L Potassium Level 3.5 mmol/L 3.6 mmol/L Chloride Level 93.0 mmol/L 95.0 mmol/L Carbon Dioxide Level 29.8 mmol/L 28.7 mmol/L Anion Gap 10.7 10.9 Blood Urea Nitrogen 15 mg/dL 13 mg/dL Creatinine 1.33 mg/dL 1.48 mg/dL Estimated GFR () 46.7 41.3 Est GFR (CKD-EPI)(Non-Afr Moroccan) 38.6 34.1 BUN/Creatinine Ratio 11.0 8.0 Glucose Level 187 mg/dL 149 mg/dL Calcium Level 8.5 mg/dL 8.9 mg/dL Total Bilirubin 0.5 mg/dL 0.4 mg/dL Aspartate Amino Transf (AST/SGOT) 11 U/L 12 U/L Alanine Aminotransferase (ALT/SGPT) 15 U/L 17 U/L Alkaline Phosphatase 74 U/L 77 U/L Total Protein 6.1 g/dL 6.2 g/dL Albumin 3.0 g/dL 3.0 g/dL Globulin 3.1 3.2 Amylase Level 32 U/L Lipase 93 U/L Helicobacter pylori Screen POSITIVE Urine Collection Type VOID Urine Color STRAW Urine Appearance CLEAR Urine Bilirubin NEGATIVE MG/DL Urine Ketones NEGATIVE Urine Specific [place] 1.005 Urine pH 8.0 Urine Protein NEGATIVE Urine Urobilinogen NEGATIVE Urine Nitrate NEGATIVE Urine Leukocyte Esterase NEGATIVE Urine Blood 50 2+ Urine RBC 0-2 RBC/HPF Urine WBC 0-2 WBC/HPF Urine Squamous Epithelial Cells RARE #/HPF Urine Bacteria NONE SEEN Urine Glucose NORMAL Troponin I < 0.02 ng/mL Test 11/23/19 07:26 Bedside Glucose 135 Current Medications Medications (Trade) Dose Ordered Sig/Rupali PRN Reason Start Time Stop Time Status Last Admin Acetaminophen (Tylenol) 1,000 mg Q6H PRN PAIN 1 - 3 11/22/19 21:00 12/22/19 20:59 11/23/19 05:19 Clarithromycin (Biaxin) 500 mg BID 11/22/19 22:30 12/22/19 22:29 11/23/19 08:32 Metronidazole 100 ml @ 100 mls/hr Q12H 11/22/19 21:00 12/22/19 20:59 11/23/19 08:33 Ondansetron HCl (Zofran) 4 mg Q4H PRN NAUSEA / VOMITING 11/22/19 21:00 12/22/19 20:59 Pantoprazole Sodium (Protonix Iv) 40 mg DAILY 11/22/19 22:30 12/22/19 22:29 11/23/19 08:33 Promethazine HCl (Phenergan) 25 mg BID PRN NAUSEA/VOMITING 11/23/19 07:30 12/23/19 07:29 LEVEL 1 SEPSIS INFECTION CRITE: ABX Therapy, Abdominal Pain O2 Sat by Pulse Oximetry: 92 Oxygen Flow Rate: 2.00 Assessment/Plan Assessment/Plan Assessment/Plan Assessment: 79-year-old female with past medical history of hyperlipidemia, diabetes, and hypertension who presents with epigastric pain for several days. She states that she has passed stool today but CT scan after bowel movement shows large fecal impaction, which is now resolved with enema treatment and oral laxatives. H. pylori blood screen positive in the setting of duodenitis on CT scan with bowel wall thickening. Patient is familiar with what H. pylori he has but she does not recall being diagnosed or treated for an H. pylori infection her. No ischemic changes on EKG troponin is negative Plan: H. pylori screen is positive we will treat empirically with antibiotics and will cover duodenitis and H. pylori. Patient will need follow-up EGD outpatient once infection is treated to biopsy for cure of H. pylori and e valuate further for potential neoplasm given bowel wall thickening. We will treat fecal impaction with enema tonight. Clear liquid diet with IV fluids and advance diet as tolerated. Troponin negative epigastric abdominal pain with no clear ischemic changes on EKG. Home tomorrow with oral antibiotics if patient continues to improve Problems: (1) Fecal impaction in rectum Status: Resolved ICD Code: K56.41 - Fecal impaction SNOMED: [id number] (2) H. pylori duodenitis Status: Acute ICD Code: K29.80 - Duodenitis without bleeding; B96.81 - Helicobacter pylori [H. pylori] as the cause of diseases classified elsewhere SNOMED: [id number] RAMILA REYNA MD Nov 23, 2019 15:53
[2019-11-23] MEDS ORDERED: LOVENOX SQ SCH (16:00)
[2019-11-23] MEDS: NS 1000ML 1,000 ML IV SCH (16:00)
[2019-11-23 17:31] VITALS: BP 93/52
[2019-11-23 21:15] VITALS: BP 135/110
[2019-11-24 01:23] VITALS: BP 95/54
[2019-11-24] MEDS: NS 1000ML 1,000 ML IV SCH ×2 (03:13→08:00)
[2019-11-24 04:27] VITALS: BP 104/65
[2019-11-24 06:09] LABS: BASOPHIL % 0.5 % (0.0-0.2); EOSINOPHIL # 0.1 10^3/uL (0.0-0.2); EOSINOPHIL % 1.5 % (0.0-5.0); LYMPHOCYTES # 1.47 10^3/uL1 (1.0-4.8); LYMPHOCYTES % 26.7 % (24.0-44.0); MEAN CORP HGB 30.3 pg (26-34); MONOCYTES # 0.5 10^3/uL (0.3-0.8); MONOCYTES % 8.5 % (5.0-12.0); NEUTROPHIL # 3.5 10^3/uL (1.8-7.7); NEUTROPHILS % 62.6 % (41.0-85.0); PLATELET COUNT 239 10^3/uL (150-400); RED CELL DISTRIBUTION WIDTH 16.3 % (11.5-14.5)
[2019-11-24 06:56] VITALS: BP 107/66
[2019-11-24 07:04] LABS: CALCIUM 8.7 mg/dL (8.4-10.5); CARBON DIOXIDE 26.1 mmol/L (20.0-32)
[2019-11-24] MEDS: FLAGYL 500MG/ 100 ML NS 100 ML IV SCH (09:00)
--- NOTE | 2019-11-24 09:02 | PRM.PN ---
Subjective Subjective Date: Nov 24, 2019 Time: 09:01 Subjective Patient states that she is feeling much better today her abdominal pain has resolved and she has been eating without difficulty no emesis, Patient has been ambulating without difficulty Patient History: Diabetes mellitus 34 FATHER FH: cancer 32 MOTHER FH: heart attack 33 FATHER VTE VTE Risk Total Score: 3 VTE Risk Score VTE Risk: Score 0-1 = Low Risk (Aggressive mobilization; early ambulation; no VTE prophylaxis required) Score 2: Moderate Risk (Intermittent/Pneumatic Compression Device OR Lovenox/Heparin/Coumadin) Score 3-4: High Risk (Intermittent/Pneumatic Compression Device AND Lovenox/Heparin/Coumadin) Score > or =5: Highest Risk (Intermittent/Pneumatic Compression Device AND Lovenox/Heparin/Coumadin) Antico:Hep/LMWH/Coum/Xarelto: Yes Mechanical device ordered: Yes Review of Systems Constitutional: No: Fever, Chills, Sweats, Weakness, Malaise, Other Eyes: No: Pain, Vision change, Conjunctivae inflammation, Eyelid inflammation, Other, Redness ENT: No: Ear pain, Ear discharge, Nose pain, Nose discharge, Nose congestion, Mouth pain, Mouth swelling, Throat pain, Throat swelling, Other Respiratory: No: Cough, Dry, Shortness of breath, SOB with excertion, Wheezing, Hemoptysis, Pleuritic Pain, Sputum, Wheezing, Other Cardiovascular: No: Chest Pain, Palpitations, Orthopnea, Paroxysmal Noc. Dyspnea, Edema, Lt Headedness, Other Gastrointestinal: No: Nausea, Vomiting, Abdominal Pain, Diarrhea, Constipation, Melena, Hematochezia, Other Genitourinary: No Dysuria, No Frequency, No Incontinence, No Hematuria, No Retention, No Other Musculoskeletal: No: other, neck pain, shoulder pain, arm pain, back pain, hand pain, leg pain, foot pain Skin: No: Rash, Lesions, Jaundice, Bruising, Other Neurological: No: Weakness, Numbness, Incoordination, Change in speech, Confusion, Seizures, Other Allergies: Coded Allergies: Penicillins (Verified Allergy, Unknown, unknown, 04/13/18) Scheduled Aspirin (Aspir 81), 81 MG PO DAILY, (Reported) Cholecalciferol (Vitamin D3) (Vitamin D-400), 400 UNIT PO DAILY, (Reported) Citalopram Hydrobromide (Citalopram Hbr), 40 MG PO DAILY, (Reported) Clarithromycin (Clarithromycin), 1 TAB PO BID Gabapentin (Gabapentin), 300 MG PO QID, (Reported) Metformin Hcl (Metformin Hcl), 500 MG PO BID, (Reported) Metronidazole (Flagyl), 500 MG PO TID Multivitamin (Multivitamins), 1 EACH PO DAILY, (Reported) [place]-3S/Dha/Epa/Fish Oil/D3 (Fish Oil + D3 Softgel), 1 EACH PO DAILY, (Reported) Omeprazole Magnesium (Prilosec Otc), 20 MG PO BID Valsartan/Hydrochlorothiazide (Valsartan-Hctz 80-12.5 Mg Tab), 1 EACH PO DAILY, (Reported) Venlafaxine Hcl (Venlafaxine Hcl Er), 75 MG PO DAILY, (Reported) Scheduled PRN Budesonide (Pulmicort Flexhaler), 180 MCG IH PRN PRN for SHORTNESS OF BREATH, (Reported) Hydrocodone Bit/Acetaminophen ([place] 5-325 Tablet), 1 EACH PO TID PRN for PAIN, (Reported) Objective Vitals and I/O Vital Sign - Last 24 Hours 11/23/19 11/23/19 11/23/19 11/23/19 09:03 12:39 14:04 14:34 Temp 98.0 Pulse 74 Resp 18 B/P (MAP) 100/56 (71) Pulse Ox 92 O2 Delivery Room Air Room Air Room Air Nasal Cannula O2 Flow Rate 2.00 11/23/19 11/23/19 11/23/19 11/24/19 16:34 17:31 21:15 01:23 Temp 98.6 97.5 98.6 Pulse 67 80 81 Resp 18 18 18 B/P (MAP) 93/52 (66) 135/110 (118) 95/54 (68) Pulse Ox 90 98 93 O2 Delivery Nasal Cannula Room Air Room Air Room Air O2 Flow Rate 2.00 11/24/19 11/24/19 11/24/19 11/24/19 01:46 04:27 06:54 06:56 Temp 98.5 98.7 Pulse 87 80 Resp 18 16 B/P (MAP) 104/65 (78) 107/66 (80) Pulse Ox 93 90 O2 Delivery Room Air Room Air Room Air Room Air Intake and Output 11/24/19 07:00 Intake Total 100 ml Output Total 1845 ml Balance -1745 ml General: Alert, Oriented X3 HEENT: Atraumatic, Mucous membr. moist/pink Neck: Supple Lungs: Clear to auscultation Heart: Regular rate Abdomen: Normal bowel sounds, Soft, No tenderness Extremities: Normal pulses Skin: No breakdown, No significant lesion Neuro: Normal speech, Strength at 5/5 X4 ext, Normal tone, Sensation intact, Cranial nerves 3-12 NL Psych/Mental Status: Mental status NL, Mood NL All Results(Lab/Rad) Laboratory Tests Test 11/22/19 17:10 11/22/19 18:18 11/22/19 22:33 11/23/19 05:45 White Blood Count 9.1 10^3/uL 9.4 10^3/uL Red Blood Count 2.84 10^6/uL 2.93 10^6/uL Hemoglobin 8.6 g/dL 8.9 g/dL Hematocrit 24.4 % 26.6 % Mean Corpuscular Volume 85.9 fL 90.8 fL Mean Corpuscular Hemoglobin 30.3 pg 30.4 pg Mean Corpuscular Hemoglobin Concent 35.2 g/dL 33.5 g/dL Red Cell Distribution Width 15.4 % 15.8 % Platelet Count 226 10^3/uL 218 10^3/uL Mean Platelet Volume 8.2 fL 8.2 fL Neutrophils (%) (Auto) 76.5 % 70.7 % Lymphocytes (%) (Auto) 15.2 % 20.4 % Monocytes (%) (Auto) 7.5 % 7.4 % Neutrophils # (Auto) 7.0 10^3/uL 6.7 10^3/uL Lymphocytes # (Auto) 1.38 10^3/uL1 1.92 10^3/uL1 Monocytes # (Auto) 0.7 10^3/uL 0.7 10^3/uL Absolute Immature Granulocyte (auto 0.03 10^3 u/L 0.02 10^3 u/L Absolute Eosinophils (auto) 0.0 10^3/uL 0.1 10^3/uL Immature Granulocytes % 0.30 % 0.20 % Eosinophils % 0.3 % 1.0 % Basophils % 0.2 % 0.3 % Basophils # 0.0 10^3/uL 0.0 10^3/uL Prothrombin Time 10.1 SEC Prothrombin Time INR (Non-Therap) 1.0 Activated Partial Thromboplast Time 21.4 SEC Sodium Level 130 mmol/L 131 mmol/L Potassium Level 3.5 mmol/L 3.6 mmol/L Chloride Level 93.0 mmol/L 95.0 mmol/L Carbon Dioxide Level 29.8 mmol/L 28.7 mmol/L Anion Gap 10.7 10.9 Blood Urea Nitrogen 15 mg/dL 13 mg/dL Creatinine 1.33 mg/dL 1.48 mg/dL Estimated GFR () 46.7 41.3 Est GFR (CKD-EPI)(Non-Afr Dutch) 38.6 34.1 BUN/Creatinine Ratio 11.0 8.0 Glucose Level 187 mg/dL 149 mg/dL Calcium Level 8.5 mg/dL 8.9 mg/dL Total Bilirubin 0.5 mg/dL 0.4 mg/dL Aspartate Amino Transf (AST/SGOT) 11 U/L 12 U/L Alanine Aminotransferase (ALT/SGPT) 15 U/L 17 U/L Alkaline Phosphatase 74 U/L 77 U/L Total Protein 6.1 g/dL 6.2 g/dL Albumin 3.0 g/dL 3.0 g/dL Globulin 3.1 3.2 Amylase Level 32 U/L Lipase 93 U/L Helicobacter pylori Screen POSITIVE Urine Collection Type VOID Urine Color STRAW Urine Appearance CLEAR Urine Bilirubin NEGATIVE MG/DL Urine Ketones NEGATIVE Urine Specific [place] 1.005 Urine pH 8.0 Urine Protein NEGATIVE Urine Urobilinogen NEGATIVE Urine Nitrate NEGATIVE Urine Leukocyte Esterase NEGATIVE Urine Blood 50 2+ Urine RBC 0-2 RBC/HPF Urine WBC 0-2 WBC/HPF Urine Squamous Epithelial Cells RARE #/HPF Urine Bacteria NONE SEEN Urine Glucose NORMAL Troponin I < 0.02 ng/mL Test 11/23/19 07:26 Bedside Glucose 135 Current Medications Medications (Trade) Dose Ordered Sig/Rupali Route PRN Reason Start Time Stop Time Status Last Admin Dose Admin Acetaminophen (Tylenol) 1,000 mg Q6H PRN PO PAIN 1 - 3 11/22/19 21:00 12/22/19 20:59 11/23/19 05:19 Ondansetron HCl (Zofran) 4 mg Q4H PRN IV NAUSEA / VOMITING 11/22/19 21:00 12/22/19 20:59 Metronidazole 100 ml @ 100 mls/hr Q12H IV 11/22/19 21:00 12/22/19 20:59 11/23/19 08:33 Morphine Sulfate (Morphine Sulfate) 4 mg STAT STAT IV 11/22/19 21:11 11/22/19 21:13 DC 11/22/19 21:35 Ondansetron HCl (Zofran) 4 mg STAT STAT IV 11/22/19 21:11 11/22/19 21:13 DC 11/22/19 21:34 Metronidazole 100 ml @ ud STK-MED ONCE IV 11/22/19 21:14 11/22/19 21:16 DC Ondansetron HCl (Zofran) 4 mg STK-MED ONCE .ROUTE 11/22/19 21:15 11/22/19 21:17 DC Morphine Sulfate (Morphine Sulfate) 4 mg STK-MED ONCE .ROUTE 11/22/19 21:15 11/22/19 21:17 DC Hydromorphone HCl (Dilaudid) 0.5 mg Q4H PRN IV PAIN 7 - 10 11/22/19 22:00 11/23/19 09:54 DC Potassium Chloride/Sodium Chloride 1,000 ml @ 100 mls/hr Q10H ONCE IV 11/22/19 22:30 11/23/19 08:29 DC 11/22/19 23:48 Clarithromycin (Biaxin) 500 mg BID PO 11/22/19 22:30 12/22/19 22:29 11/23/19 08:32 Pantoprazole Sodium (Protonix Iv) 40 mg DAILY IV 11/22/19 22:30 12/22/19 22:29 11/23/19 08:33 Sodium Chloride 500 ml @ ud STK-MED ONCE IV 11/22/19 22:33 11/22/19 22:35 DC Magnesium Citrate (Magnesium Citrate) 150 ml STAT STAT PO 11/22/19 22:36 11/23/19 00:27 DC 11/22/19 23:44 Promethazine HCl (Phenergan) 25 mg BID PRN IM NAUSEA/VOMITING 11/22/19 23:00 11/23/19 00:09 DC Sodium Chloride 25 ml @ ud STK-MED ONCE IV 11/22/19 23:13 11/22/19 23:14 DC Promethazine HCl (Phenergan) 25 mg BID PRN IV NAUSEA/VOMITING 11/23/19 00:30 11/23/19 07:12 DC 11/22/19 23:20 Promethazine HCl (Phenergan) 25 mg STK-MED ONCE .ROUTE 11/22/19 23:13 11/23/19 00:09 DC Promethazine HCl (Phenergan) 25 mg BID PRN IM NAUSEA/VOMITING 11/23/19 07:30 12/23/19 07:29 Glycerin (Sani-Supp) 1 each OT ONCE RC 11/23/19 10:00 11/23/19 10:02 DC Bisacodyl (Bisac-Evac) 10 mg OT ONCE RC 11/23/19 10:30 11/23/19 10:31 DC 11/23/19 11:14 Course Sepsis Screening Results: Posi: NEGATIVE Sepsis Qualifier/Stage: NO DEFINITE RISK Duration or Total Time Spent w: 10 min Vitals & review Data Vital Sign - Last 24 Hours 11/22/19 11/22/19 11/22/19 11/22/19 16:35 16:35 16:35 18:06 Temp 98.3 98.3 98.3 98.3 Pulse 117 117 117 116 Resp 20 20 20 20 B/P (MAP) 123/74 (90) 123/49 (73) Pulse Ox 97 97 97 O2 Delivery Room Air Room Air 11/22/19 11/22/19 11/22/19 11/22/19 19:41 20:41 21:41 22:50 Temp 97.4 Pulse 74 71 74 72 Resp 18 20 18 18 B/P (MAP) 123/66 (85) 112/60 (77) 112/65 (81) 136/61 (86) Pulse Ox 96 95 95 94 O2 Delivery Room Air Room Air Room Air Room Air 11/23/19 11/23/19 11/23/19 11/23/19 05:14 07:14 07:29 09:03 Temp 97.4 98.0 Pulse 77 62 Resp 18 18 B/P (MAP) 90/54 (66) 98/57 (71) Pulse Ox 93 92 O2 Delivery Room Air Room Air Room Air Room Air 11/23/19 11/23/19 11/23/19 12:39 14:04 14:34 Temp 98.0 Pulse 74 Resp 18 B/P (MAP) 100/56 (71) Pulse Ox 92 O2 Delivery Room Air Room Air Nasal Cannula O2 Flow Rate 2.00 Intake and Output 11/23/19 07:00 Intake Total 100 ml Balance 100 ml Laboratory Tests Test 11/22/19 17:10 11/22/19 18:18 11/22/19 22:33 11/23/19 05:45 White Blood Count 9.1 10^3/uL 9.4 10^3/uL Red Blood Count 2.84 10^6/uL 2.93 10^6/uL Hemoglobin 8.6 g/dL 8.9 g/dL Hematocrit 24.4 % 26.6 % Mean Corpuscular Volume 85.9 fL 90.8 fL Mean Corpuscular Hemoglobin 30.3 pg 30.4 pg Mean Corpuscular Hemoglobin Concent 35.2 g/dL 33.5 g/dL Red Cell Distribution Width 15.4 % 15.8 % Platelet Count 226 10^3/uL 218 10^3/uL Mean Platelet Volume 8.2 fL 8.2 fL Neutrophils (%) (Auto) 76.5 % 70.7 % Lymphocytes (%) (Auto) 15.2 % 20.4 % Monocytes (%) (Auto) 7.5 % 7.4 % Neutrophils # (Auto) 7.0 10^3/uL 6.7 10^3/uL Lymphocytes # (Auto) 1.38 10^3/uL1 1.92 10^3/uL1 Monocytes # (Auto) 0.7 10^3/uL 0.7 10^3/uL Absolute Immature Granulocyte (auto 0.03 10^3 u/L 0.02 10^3 u/L Absolute Eosinophils (auto) 0.0 10^3/uL 0.1 10^3/uL Immature Granulocytes % 0.30 % 0.20 % Eosinophils % 0.3 % 1.0 % Basophils % 0.2 % 0.3 % Basophils # 0.0 10^3/uL 0.0 10^3/uL Prothrombin Time 10.1 SEC Prothrombin Time INR (Non-Therap) 1.0 Activated Partial Thromboplast Time 21.4 SEC Sodium Level 130 mmol/L 131 mmol/L Potassium Level 3.5 mmol/L 3.6 mmol/L Chloride Level 93.0 mmol/L 95.0 mmol/L Carbon Dioxide Level 29.8 mmol/L 28.7 mmol/L Anion Gap 10.7 10.9 Blood Urea Nitrogen 15 mg/dL 13 mg/dL Creatinine 1.33 mg/dL 1.48 mg/dL Estimated GFR () 46.7 41.3 Est GFR (CKD-EPI)(Non-Afr [place]) 38.6 34.1 BUN/Creatinine Ratio 11.0 8.0 Glucose Level 187 mg/dL 149 mg/dL Calcium Level 8.5 mg/dL 8.9 mg/dL Total Bilirubin 0.5 mg/dL 0.4 mg/dL Aspartate Amino Transf (AST/SGOT) 11 U/L 12 U/L Alanine Aminotransferase (ALT/SGPT) 15 U/L 17 U/L Alkaline Phosphatase 74 U/L 77 U/L Total Protein 6.1 g/dL 6.2 g/dL Albumin 3.0 g/dL 3.0 g/dL Globulin 3.1 3.2 Amylase Level 32 U/L Lipase 93 U/L Helicobacter pylori Screen POSITIVE Urine Collection Type VOID Urine Color STRAW Urine Appearance CLEAR Urine Bilirubin NEGATIVE MG/DL Urine Ketones NEGATIVE Urine Specific [place] 1.005 Urine pH 8.0 Urine Protein NEGATIVE Urine Urobilinogen NEGATIVE Urine Nitrate NEGATIVE Urine Leukocyte Esterase NEGATIVE Urine Blood 50 2+ Urine RBC 0-2 RBC/HPF Urine WBC 0-2 WBC/HPF Urine Squamous Epithelial Cells RARE #/HPF Urine Bacteria NONE SEEN Urine Glucose NORMAL Troponin I < 0.02 ng/mL Test 11/23/19 07:26 Bedside Glucose 135 Current Medications Medications (Trade) Dose Ordered Sig/Rupali PRN Reason Start Time Stop Time Status Last Admin Acetaminophen (Tylenol) 1,000 mg Q6H PRN PAIN 1 - 3 11/22/19 21:00 12/22/19 20:59 11/23/19 05:19 Clarithromycin (Biaxin) 500 mg BID 11/22/19 22:30 12/22/19 22:29 11/23/19 08:32 Metronidazole 100 ml @ 100 mls/hr Q12H 11/22/19 21:00 12/22/19 20:59 11/23/19 08:33 Ondansetron HCl (Zofran) 4 mg Q4H PRN NAUSEA / VOMITING 11/22/19 21:00 12/22/19 20:59 Pantoprazole Sodium (Protonix Iv) 40 mg DAILY 11/22/19 22:30 12/22/19 22:29 11/23/19 08:33 Promethazine HCl (Phenergan) 25 mg BID PRN NAUSEA/VOMITING 11/23/19 07:30 12/23/19 07:29 LEVEL 1 SEPSIS INFECTION CRITE: ABX Therapy, Abdominal Pain O2 Sat by Pulse Oximetry: 90 Oxygen Flow Rate: 2.00 Assessment/Plan Assessment/Plan Assessment/Plan Assessment: 79-year-old female with past medical history of hyperlipidemia, diabetes, and hypertension who presents with epigastric pain for several days. CT scan after bowel movement showed large fecal impaction, which is now resolved with enema treatment and oral laxatives. H. pylori blood screen positive in the setting of duodenitis on CT scan with bowel wall thickening. Patient is familiar with what H. pylori he has but she does not recall being diagnosed or treated for an H. pylori infection her. No ischemic changes on EKG troponin is negative Plan: H. pylori screen is positive we will treat empirically with antibiotics and will cover duodenitis and H. pylori. Patient will need follow-up EGD outpatient once infection is treated to biopsy for cure of H. pylori and evaluate further for potential neoplasm given bowel wall thickening. . Clear liquid diet with IV fluids and advance diet as tolerated. Troponin negative epigastric abdominal pain with no clear ischemic changes on EKG. Home today on oral antibiotics Problems: (1) Fecal impaction in rectum Status: Resolved ICD Code: K56.41 - Fecal impaction SNOMED: [id number] (2) H. pylori duodenitis Status: Acute ICD Code: K29.80 - Duodenitis without bleeding; B96.81 - Helicobacter pylori [H. pylori] as the cause of diseases classified elsewhere RAMILA REYNA MD Nov 24, 2019 09:02
[2019-11-24] MEDS: CIPRO 200 ML IV SCH (09:07)
[2019-11-24] MEDS: PROTONIX IV IV SCH (09:07)
[2019-11-24] MEDS: BIAXIN PO SCH (09:07)
[2019-11-24] MEDS ORDERED: CLAR-13 PO (09:16)
[2019-11-24] MEDS ORDERED: OMEP20TA62 PO (09:16)
[2019-11-24] MEDS ORDERED: METR500T PO (09:16)
--- NOTE | 2019-11-24 09:19 | PRM.DC ---
Subjective Subjective Date of Discharge: Nov 24, 2019 Time of Request to Discharge: 09:19 Subjective 11/22/19 Upper abdominal pain on and off for 1 week. Patient states that she has not been eating or drinking well today. She states that she passed stool around 3:[address] scan since she has a fecal impaction so she is likely passing stool around the impaction. Patient is familiar with what H. pylori he has but she does not recall being diagnosed or treated for an H. pylori infection her H. pylori screen is positive we will treat empirically with antibiotics and will cover duodenitis and H. pylori. Patient will need follow-up EGD outpatient once infection is treated to biopsy for cure of H. pylori and evaluate further for potential neoplasm given bowel wall thickening. We discussed use of an enema tonight to help clear her fecal impaction 11/23/19 Patient was resistant to the idea of utilizing an enema overnight to resolve her fecal impaction we tried oral medications without success this morning and patient then agreed to allow an enema administered by nursing staff. Since the enema she has had excellent stool output and her pain and distention have decreased. She is resting comfortably in bed at the time of my exam 11/24/19 Patient states that she is feeling much better today her abdominal pain has resolved and she has been eating without difficulty no emesis, Patient has been ambulating without difficulty Patient History: Diabetes mellitus 33 FATHER FH: cancer 32 MOTHER FH: heart attack 33 FATHER Exam Vital Signs Vital Signs Date Time Temp Pulse Resp B/P (MAP) Pulse Ox O2 Delivery O2 Flow Rate FiO2 11/24/19 06:56 98.7 80 16 107/66 (80) 90 Room Air 11/23/19 16:34 2.00 General Appearance: Alert, Oriented X3, Cooperative, No acute distress HEENT: Atraumatic, PERRLA Respiratory: Clear to auscultation, Normal air movement Cardiovascular: Regular rate Abdominal: Normal bowel sounds Extremities: No clubbing, No cyanosis, No edema, Normal pulses Skin: No rash, No breakdown Neuro: Normal gait, Normal speech, Strength at 5/5 X4 ext, Normal tone, Sensation intact, Cranial nerves 3-12 NL Psych/Mental Status: Mental status NL, Mood NL VTE VTE Risk Total Score: 3 VTE Risk Score VTE Risk: Score 0-1 = Low Risk (Aggressive mobilization; early ambulation; no VTE prophylaxis required) Score 2: Moderate Risk (Intermittent/Pneumatic Compression Device OR Lovenox/Heparin/Coumadin) Score 3-4: High Risk (Intermittent/Pneumatic Compression Device AND Lovenox/Heparin/Coumadin) Score > or =5: Highest Risk (Intermittent/Pneumatic Compression Device AND Lovenox/Heparin/Coumadin) Antico:Hep/LMWH/Coum/Xarelto: Yes Mechanical device ordered: Yes Objective Vitals and I/O Vital Sign - Last 24 Hours 11/23/19 11/23/19 11/23/19 11/23/19 12:39 14:04 14:34 16:34 Temp 98.0 Pulse 74 Resp 18 B/P (MAP) 100/56 (71) Pulse Ox 92 O2 Delivery Room Air Room Air Nasal Cannula Nasal Cannula O2 Flow Rate 2.00 2.00 11/23/19 11/23/19 11/24/19 11/24/19 17:31 21:15 01:23 01:46 Temp 98.6 97.5 98.6 Pulse 67 80 81 Resp 18 18 18 B/P (MAP) 93/52 (66) 135/110 (118) 95/54 (68) Pulse Ox 90 98 93 O2 Delivery Room Air Room Air Room Air Room Air 11/24/19 11/24/19 11/24/19 04:27 06:54 06:56 Temp 98.5 98.7 Pulse 87 80 Resp 18 16 B/P (MAP) 104/65 (78) 107/66 (80) Pulse Ox 93 90 O2 Delivery Room Air Room Air Room Air Intake and Output 11/24/19 07:00 Intake Total 100 ml Output Total 1845 ml Balance -1745 ml General: Alert, Oriented X3 HEENT: Atraumatic, Mucous membr. moist/pink Lungs: Clear to auscultation Heart: Regular rate Abdomen: Normal bowel sounds, Soft Extremities: Normal pulses Neuro: Normal speech, Strength at 5/5 X4 ext, Normal tone, Sensation intact, Cranial nerves 3-12 NL All Results(Lab/Rad) Laboratory Tests Test 11/22/19 17:10 11/22/19 18:18 11/22/19 22:33 11/23/19 05:45 White Blood Count 9.1 10^3/uL 9.4 10^3/uL Red Blood Count 2.84 10^6/uL 2.93 10^6/uL Hemoglobin 8.6 g/dL 8.9 g/dL Hematocrit 24.4 % 26.6 % Mean Corpuscular Volume 85.9 fL 90.8 fL Mean Corpuscular Hemoglobin 30.3 pg 30.4 pg Mean Corpuscular Hemoglobin Concent 35.2 g/dL 33.5 g/dL Red Cell Distribution Width 15.4 % 15.8 % Platelet Count 226 10^3/uL 218 10^3/uL Mean Platelet Volume 8.2 fL 8.2 fL Neutrophils (%) (Auto) 76.5 % 70.7 % Lymphocytes (%) (Auto) 15.2 % 20.4 % Monocytes (%) (Auto) 7.5 % 7.4 % Neutrophils # (Auto) 7.0 10^3/uL 6.7 10^3/uL Lymphocytes # (Auto) 1.38 10^3/uL1 1.92 10^3/uL1 Monocytes # (Auto) 0.7 10^3/uL 0.7 10^3/uL Absolute Immature Granulocyte (auto 0.03 10^3 u/L 0.02 10^3 u/L Absolute Eosinophils (auto) 0.0 10^3/uL 0.1 10^3/uL Immature Granulocytes % 0.30 % 0.20 % Eosinophils % 0.3 % 1.0 % Basophils % 0.2 % 0.3 % Basophils # 0.0 10^3/uL 0.0 10^3/uL Prothrombin Time 10.1 SEC Prothrombin Time INR (Non-Therap) 1.0 Activated Partial Thromboplast Time 21.4 SEC Sodium Level 130 mmol/L 131 mmol/L Potassium Level 3.5 mmol/L 3.6 mmol/L Chloride Level 93.0 mmol/L 95.0 mmol/L Carbon Dioxide Level 29.8 mmol/L 28.7 mmol/L Anion Gap 10.7 10.9 Blood Urea Nitrogen 15 mg/dL 13 mg/dL Creatinine 1.33 mg/dL 1.48 mg/dL Estimated GFR () 46.7 41.3 Est GFR (CKD-EPI)(Non-Afr [place] Ver[place]an) 38.6 34.1 BUN/Creatinine Ratio 11.0 8.0 Glucose Level 187 mg/dL 149 mg/dL Calcium Level 8.5 mg/dL 8.9 mg/dL Total Bilirubin 0.5 mg/dL 0.4 mg/dL Aspartate Amino Transf (AST/SGOT) 11 U/L 12 U/L Alanine Aminotransferase (ALT/SGPT) 15 U/L 17 U/L Alkaline Phosphatase 74 U/L 77 U/L Total Protein 6.1 g/dL 6.2 g/dL Albumin 3.0 g/dL 3.0 g/dL Globulin 3.1 3.2 Amylase Level 32 U/L Lipase 93 U/L Helicobacter pylori Screen POSITIVE Urine Collection Type VOID Urine Color STRAW Urine Appearance CLEAR Urine Bilirubin NEGATIVE MG/DL Urine Ketones NEGATIVE Urine Specific Roy 1.005 Urine pH 8.0 Urine Protein NEGATIVE Urine Urobilinogen NEGATIVE Urine Nitrate NEGATIVE Urine Leukocyte Esterase NEGATIVE Urine Blood 50 2+ Urine RBC 0-2 RBC/HPF Urine WBC 0-2 WBC/HPF Urine Squamous Epithelial Cells RARE #/HPF Urine Bacteria NONE SEEN Urine Glucose NORMAL Troponin I < 0.02 ng/mL Test 11/23/19 07:26 Bedside Glucose 135 Current Medications Medications (Trade) Dose Ordered Sig/Rupali Route PRN Reason Start Time Stop Time Status Last Admin Dose Admin Acetaminophen (Tylenol) 1,000 mg Q6H PRN PO PAIN 1 - 3 11/22/19 21:00 12/22/19 20:59 11/23/19 05:19 Ondansetron HCl (Zofran) 4 mg Q4H PRN IV NAUSEA / VOMITING 11/22/19 21:00 12/22/19 20:59 Metronidazole 100 ml @ 100 mls/hr Q12H IV 11/22/19 21:00 12/22/19 20:59 11/23/19 08:33 Morphine Sulfate (Morphine Sulfate) 4 mg STAT STAT IV 11/22/19 21:11 11/22/19 21:13 DC 11/22/19 21:35 Ondansetron HCl (Zofran) 4 mg STAT STAT IV 11/22/19 21:11 11/22/19 21:13 DC 11/22/19 21:34 Metronidazole 100 ml @ ud STK-MED ONCE IV 11/22/19 21:14 11/22/19 21:16 DC Ondansetron HCl (Zofran) 4 mg STK-MED ONCE .ROUTE 11/22/19 21:15 11/22/19 21:17 DC Morphine Sulfate (Morphine Sulfate) 4 mg STK-MED ONCE .ROUTE 11/22/19 21:15 11/22/19 21:17 DC Hydromorphone HCl (Dilaudid) 0.5 mg Q4H PRN IV PAIN 7 - 10 11/22/19 22:00 11/23/19 09:54 DC Potassium Chloride/Sodium Chloride 1,000 ml @ 100 mls/hr Q10H ONCE IV 11/22/19 22:30 11/23/19 08:29 DC 11/22/19 23:48 Clarithromycin (Biaxin) 500 mg BID PO 11/22/19 22:30 12/22/19 22:29 11/23/19 08:32 Pantoprazole Sodium (Protonix Iv) 40 mg DAILY IV 11/22/19 22:30 12/22/19 22:29 11/23/19 08:33 Sodium Chloride 500 ml @ ud STK-MED ONCE IV 11/22/19 22:33 11/22/19 22:35 DC Magnesium Citrate (Magnesium Citrate) 150 ml STAT STAT PO 11/22/19 22:36 11/23/19 00:27 DC 11/22/19 23:44 Promethazine HCl (Phenergan) 25 mg BID PRN IM NAUSEA/VOMITING 11/22/19 23:00 11/23/19 00:09 DC Sodium Chloride 25 ml @ ud STK-MED ONCE IV 11/22/19 23:13 11/22/19 23:14 DC Promethazine HCl (Phenergan) 25 mg BID PRN IV NAUSEA/VOMITING 11/23/19 00:30 11/23/19 07:12 DC 11/22/19 23:20 Promethazine HCl (Phenergan) 25 mg STK-MED ONCE .ROUTE 11/22/19 23:13 11/23/19 00:09 DC Promethazine HCl (Phenergan) 25 mg BID PRN IM NAUSEA/VOMITING 11/23/19 07:30 12/23/19 07:29 Glycerin (Sani-Supp) 1 each OT ONCE RC 11/23/19 10:00 11/23/19 10:02 DC Bisacodyl (Bisac-Evac) 10 mg OT ONCE RC 11/23/19 10:30 11/23/19 10:31 DC 11/23/19 11:14 Medication Reconciliation Scheduled Aspirin (Aspir 81), 81 MG PO DAILY, (Reported) Cholecalciferol (Vitamin D3) (Vitamin D-400), 400 UNIT PO DAILY, (Reported) Citalopram Hydrobromide (Citalopram Hbr), 40 MG PO DAILY, (Reported) Clarithromycin (Clarithromycin), 1 TAB PO BID Gabapentin (Gabapentin), 300 MG PO QID, (Reported) Metformin Hcl (Metformin Hcl), 500 MG PO BID, (Reported) Metronidazole (Flagyl), 500 MG PO TID Multivitamin (Multivitamins), 1 EACH PO DAILY, (Reported) [place]-3S/Dha/Epa/Fish Oil/D3 (Fish Oil + D3 Softgel), 1 EACH PO DAILY, (Reported) Omeprazole Magnesium (Prilosec Otc), 20 MG PO BID Valsartan/Hydrochlorothiazide (Valsartan-Hctz 80-12.5 Mg Tab), 1 EACH PO DAILY, (Reported) Venlafaxine Hcl (Venlafaxine Hcl Er), 75 MG PO DAILY, (Reported) Scheduled PRN Budesonide (Pulmicort Flexhaler), 180 MCG IH PRN PRN for SHORTNESS OF BREATH, (Reported) Hydrocodone Bit/Acetaminophen ([place] 5-325 Tablet), 1 EACH PO TID PRN for PAIN, (Reported) Plan Assessment Assessment: 79-year-old female with past medical history of hyperlipidemia, diabetes, and hypertension who presents with epigastric pain for several days. CT scan after bowel movement showed large fecal impaction, which is now resolved with enema treatment and oral laxatives. H. pylori blood screen positive in the setting of duodenitis on CT scan with bowel wall thickening. Patient is familiar with what H. pylori he has but she does not recall being diagnosed or treated for an H. pylori infection her. No ischemic changes on EKG troponin is negative. Patient ambulating the hallways and is stable for discharge Plan: H. pylori screen is positive we will treat empirically with antibiotics and will cover duodenitis and H. pylori. Patient will need follow-up EGD outpatient once infection is treated to biopsy for cure of H. pylori and evaluate further for potential neoplasm given bowel wall thickening. . Clear liquid diet with IV fluids and advance diet as tolerated. Troponin negative epigastric abdominal pain with no clear ischemic changes on EKG. Home today on oral antibiotics Problems: (1) Fecal impaction in rectum Status: Resolved ICD Code: K56.41 - Fecal impaction SNOMED: [id number] (2) H. pylori duodenitis Status: Acute ICD Code: K29.80 - Duodenitis without bleeding; B96.81 - Helicobacter pylori [H. pylori] as the cause of diseases classified elsewhere Plan My Orders - RAMILA REYNA MD Procedure Category Date Status Time Change Status Of NURORDERS 11/23/19 Transmitted Level Of Care 09:50 Pt Eval And Treat PT 11/23/19 Transmitted Mobility 09:52 Glycerin (Sani-Supp) PHA 11/23/19 Complete 10:00 Bisacodyl (Bisac-Evac) PHA 11/23/19 Complete 10:30 Enoxaparin Sodium PHA 11/23/19 In Process (Lovenox) 16:00 0.9 % Sodium Chloride PHA 11/23/19 In Process (Ns 1000ml) 16:00 Cbc With Auto Diff LAB 11/24/19 Complete 05:00 Comprehensive LAB 11/24/19 Complete Metabolic Panel 05:00 Pt Clarify Mob. PT 11/23/19 Transmitted Treatment 16:45 Regular Diet DIET 11/24/19 Transmitted Breakfast Bedside Glucose LAB 11/23/19 Complete 21:32 Bedside Glucose LAB 11/24/19 Complete 06:51 Discharge DISCHARGE 11/24/19 Transmitted 09:10 RAMILA REYNA MD Nov 24, 2019 09:19
[2019-11-24 12:13] VITALS: BP 107/66
== END 2019-11-24 12:05 | disposition home health service (06) | DRG 392 ==
LOC: ER 16:30 → EDBD 16:30 → MS 20:50 → OBSVTOIN 20:51
PROVIDERS: ADMIT Family Medicine; ATTEND Family Medicine
DX: K29.80 Duodenitis without bleeding (principal); B96.81 Helicobacter pylori [H. pylori] as the cause of diseases classified elsewhere; E78.5 Hyperlipidemia, unspecified; I10 Essential (primary) hypertension; E11.9 Type 2 diabetes mellitus without complications; K56.41 Fecal impaction; Z86.73 Personal history of transient ischemic attack (TIA), and cerebral infarction without residual deficits; Z90.710 Acquired absence of both cervix and uterus; Z88.0 Allergy status to penicillin; Z79.82 Long term (current) use of aspirin; Z79.84 Long term (current) use of oral hypoglycemic drugs; Z79.899 Other long term (current) drug therapy; Z80.8 Family history of malignant neoplasm of other organs or systems; Z82.49 Family history of ischemic heart disease and other diseases of the circulatory system; Z83.3 Family history of diabetes mellitus
CPT/HCPCS: 36415; 74177; 80053; 81000; 82150; 82948; 83690; 84484; 85025; 85610; 85730; 86677; 93005; 97161; 99285; C9113; G0378; J0744; J1650; J2270; J2405; J2550; J3490; J7030; J7040; Q9965; 97116-GP

== ENCOUNTER 2019-11-24 20:43 | Emergency (ER) | payer MEDICARE, OTHER ==
[~2019-11-24] VITALS: Ht 165.1 cm; Wt 59.9 kg
[~2019-11-24 20:43] MED LIST changes: +CLAR-13 PO; +METR500T PO; +OMEP20TA62 PO
[2019-11-24 20:57] VITALS: BP_SYST 154; BP_DIAS 82; BP_DIAS 90
[2019-11-24 21:22] LABS: BASOPHIL % 0.4 % (0.0-0.2); EOSINOPHIL # 0.1 10^3/uL (0.0-0.2); EOSINOPHIL % 1.2 % (0.0-5.0); LYMPHOCYTES # 1.59 10^3/uL1 (1.0-4.8); LYMPHOCYTES % 17.1 % (24.0-44.0); MEAN CORP HGB 30.5 pg (26-34); MONOCYTES # 0.8 10^3/uL (0.3-0.8); MONOCYTES % 8.1 % (5.0-12.0); NEUTROPHIL # 6.8 10^3/uL (1.8-7.7); NEUTROPHILS % 72.9 % (41.0-85.0); PLATELET COUNT 216 10^3/uL (150-400); RED CELL DISTRIBUTION WIDTH 15.8 % (11.5-14.5)
[2019-11-24 21:38] LABS: CALCIUM 8.9 mg/dL (8.4-10.5); CARBON DIOXIDE 24.7 mmol/L (20.0-32); GLUCOSE 120 mg/dL (70-110)
--- NOTE | 2019-11-24 22:15 | DIREP ---
PROCEDURE:CT HEAD OR BRAIN W/O CONTRAST COMPARISON:None. INDICATIONS:Numbness in extremeties TECHNIQUE:CT images were created without intravenous contrast. FINDINGS: VENTRICLES:The ventricles are normal in size and configuration. CEREBRUM:Normal cerebral morphology with appropriate carrillo white matter differentiation. CEREBELLUM:Negative. BRAINSTEM:Negative. BASAL CISTERNS:Negative. HEMORRHAGE:No MASS LESION:No ACUTE INFARCT:No SKULL:Normal. SINUSES:Normal. OTHER:None CONCLUSION:Normal examination. Dictated by: Mic Deluca Jr. on 11/24/2019 at 10:11 PM
--- NOTE | 2019-11-24 22:58 | ER.PDOC ---
General Chief Complaint: Extremities Stated Complaint: ARM/LEG NUMBNESS Time seen by MD: 22:53 Source: patient Exam Limitations: no limitations History of Present Illness Initial Comments Numbness of all the extremities. Patient got discharged from Hospital earlier today. No weakness or facial droop. No speech abnormality. Timing/Duration: 1-3 hours Severity: mild Usually: orientedx3 Prior symptoms/Treatment: Recenly Seen, Treated by Doctor, Recently Hospitalized Allergies: Coded Allergies: Penicillins (Verified Allergy, Unknown, unknown, 04/13/18) Home Meds Active Scripts Omeprazole Magnesium (PRILOSEC OTC) 20 Mg Tablet.dr, 20 MG PO BID for 10 Days, #20 CAP Prov:RAMILA REYNA MD 11/24/19 Clarithromycin (CLARITHROMYCIN) 500 Mg Tablet, 1 TAB PO BID, #20 TAB Prov:RAMILA REYNA MD 11/24/19 Metronidazole (FLAGYL) 500 Mg Tablet, 500 MG PO TID for 7 Days, #20 TAB Prov:RAMILA REYNA MD 11/24/19 Reported Medications Aspirin (ASPIR 81) 81 Mg Tablet.dr, 81 MG PO DAILY 02/23/14 [place]-3S/Dha/Epa/Fish Oil/D3 (Fish Oil + D3 Softgel) 1 Each Capsule, 1 EACH PO DAILY, CAPSULE 02/23/14 Citalopram Hydrobromide (CITALOPRAM HBR) 40 Mg Tablet, 40 MG PO DAILY, TABLET 02/23/14 Valsartan/Hydrochlorothiazide (VALSARTAN-HCTZ 80-12.5 MG TAB) 1 Each Tablet, 1 EACH PO DAILY, TABLET 02/23/14 Budesonide (PULMICORT FLEXHALER) 180 Mcg Aer.pow.ba, 180 MCG IH PRN PRN for SHORTNESS OF BREATH 02/23/14 Gabapentin (GABAPENTIN) 300 Mg Capsule, 300 MG PO QID, CAPSULE 02/23/14 Multivitamin (MULTIVITAMINS) 1 Each Tablet, 1 EACH PO DAILY, TABLET 02/23/14 Cholecalciferol (Vitamin D3) (VITAMIN D-400) 400 Unit Tablet, 400 UNIT PO DAILY, TABLET 02/23/14 Venlafaxine Hcl (VENLAFAXINE HCL ER) 75 Mg Cap.er.24h, 75 MG PO DAILY 02/23/14 Hydrocodone Bit/Acetaminophen ([place] 5-325 TABLET) 1 Each Tablet, 1 EACH PO TID PRN for PAIN, TABLET 02/23/14 Metformin Hcl (METFORMIN HCL) 500 Mg Tablet, 500 MG PO BID, TABLET 02/23/14 Past Medical History Medical History: CVA/TIA/stroke, diabetes Surgical History: hysterectomy, tonsillectomy Social History Alcohol Use: none Drug Use: none Review of Systems Constitutional: no symptoms reported Respiratory: no symptoms reported Cardiovascular: no symptoms reported Gastrointestinal: no symptoms reported Genitourinary: no symptoms reported Psychiatric/Neurological: see HPI All Other Systems: Reviewed and Negative Physical Exam General Appearance: alert, no distress, anxious Neuro/Psych: oriented x3, nml speech/cognition, nml mood/affect Cranial Nerves: nml as tested Peripheral Exam: motor nml, sensation nml, reflexes nml Neck: supple, non-tender, no carotid bruit Respiratory: no resp distress, breath sounds nml CVS: reg rate & rhythm, heart sounds nml Abdomen: non-tender, no organomegaly, no distention Skin: color nml, no rash, warm/dry Extremities: non-tender, nml ROM, no pedal edema Results/Orders Results/Orders Orders - KEMI NICHOLS MD Cbc With Auto Diff (11/24/19 21:05) Ct Head Wo Contrast (11/24/19 21:05) Ekg-Routine (11/24/19 21:05) Troponin I (11/24/19 21:05) Basic Metabolic Panel (11/24/19 21:05) Vital Signs Date Time Temp Pulse Resp B/P (MAP) Pulse Ox O2 Delivery O2 Flow Rate FiO2 11/24/19 21:11 97.8 82 22 96 11/24/19 20:57 97.8 82 22 96 11/24/19 20:57 97.8 82 22 11/24/19 20:57 98.1 85 22 96 Laboratory Tests Test 11/24/19 21:13 White Blood Count 9.3 10^3/uL (4.5-11.0) Red Blood Count 2.69 10^6/uL (4.00-5.20) L Hemoglobin 8.2 g/dL (12.0-15.0) L Hematocrit 24.1 % (36.0-46.0) L Mean Corpuscular Volume 89.6 fL (78-100) Mean Corpuscular Hemoglobin 30.5 pg (26-34) Mean Corpuscular Hemoglobin Concent 34.0 g/dL (33-36.5) Red Cell Distribution Width 15.8 % (11.5-14.5) H Platelet Count 216 10^3/uL (150-400) Mean Platelet Volume 8.0 fL (7.8-11.0) Neutrophils (%) (Auto) 72.9 % (41.0-85.0) Lymphocytes (%) (Auto) 17.1 % (24.0-44.0) L Monocytes (%) (Auto) 8.1 % (5.0-12.0) Neutrophils # (Auto) 6.8 10^3/uL (1.8-7.7) Lymphocytes # (Auto) 1.59 10^3/uL1 (1.0-4.8) Monocytes # (Auto) 0.8 10^3/uL (0.3-0.8) Absolute Immature Granulocyte (auto 0.03 10^3 u/L (0-2) Absolute Eosinophils (auto) 0.1 10^3/uL (0.0-0.2) Immature Granulocytes % 0.30 % (0.00-0.50) Eosinophils % 1.2 % (0.0-5.0) Basophils % 0.4 % (0.0-0.2) H Basophils # 0.0 10^3/uL (0.0-0.1) Sodium Level 131 mmol/L (132-145) L Potassium Level 3.6 mmol/L (3.6-5.2) Chloride Level 96.0 mmol/L (96-109) Carbon Dioxide Level 24.7 mmol/L (20.0-32) Glucose Level 120 mg/dL (70-110) H Blood Urea Nitrogen 11 mg/dL (7-18) Creatinine 1.30 mg/dL (0.59-1.40) Calcium Level 8.9 mg/dL (8.4-10.5) Anion Gap 13.9 Estimated GFR () 47.9 (>/=60) Est GFR (CKD-EPI)(Non-Afr [place]ian) 39.6 (>/=60) BUN/Creatinine Ratio 8.0 Troponin I < 0.02 ng/mL (0.00-0.05) Progress Progress Patient's numbness resolved and she is feeling fine ready to go home. Reviewed labs and CT head with her. Departure Time of Disposition: 22:56 Disposition: 01 HOME, SELF-CARE Impression: Primary Impression: Numbness Additional Impression: Anxiety Condition: Improved Referrals: JESSICA RICARDO (PCP) PRIMARY CARE PROVIDER Additional Instructions: F/U with your PCP in 1-2 days Return to ED if worsening symptoms or concerns Duration or Time Spent with Pa: 45 min Problem Qualifiers KEMI NICHOLS MD Nov 24, 2019 22:58
== END 2019-11-24 23:42 | disposition home or self-care (01) ==
LOC: ER 20:43 → EDBD 20:43 → ER 23:42
DX: F41.9 Anxiety disorder, unspecified (principal); E11.9 Type 2 diabetes mellitus without complications; Z79.51 Long term (current) use of inhaled steroids; Z79.82 Long term (current) use of aspirin; Z79.899 Other long term (current) drug therapy; Z86.73 Personal history of transient ischemic attack (TIA), and cerebral infarction without residual deficits; Z90.710 Acquired absence of both cervix and uterus; Z88.0 Allergy status to penicillin
CPT/HCPCS: 36415; 70450; 80048; 84484; 85025; 93005; 99285

== ENCOUNTER 2020-06-29 18:02 | Observation (INO) | payer MEDICARE, OTHER ==
[~2020-06-29] VITALS: Ht 170.2 cm; Wt 63.6 kg
[2020-06-29 18:14] VITALS: BP_SYST 121; BP_SYST 129; BP_DIAS 67; BP_DIAS 77
--- NOTE | 2020-06-29 18:16 | PCM.EKG ---
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 Reading MD: Kemi NICHOLS Measurements Intervals [place] Rate: 75 P: 57 HI: 152 QRS: -46 QRSD: 92 T: 51 QT: 358 QTc: 400 Interpretive Statements Sinus rhythm Atrial premature complex Left anterior fascicular block Borderline T abnormalities, anterior leads Compared to ECG 11/22/2019 20:59:14 Atrial premature complex(es) now present Left anterior fascicular block now present Prolonged QT interval no longer present T-wave abnormality still present Electronically Signed On 06-30-2020 0:12:57 CDT by Kemi NICHOLS Please click the below link to view image of tracing.
--- NOTE | 2020-06-29 18:18 | NUR ---
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
[2020-06-29] MEDS ORDERED: BUPR300T92 PO (18:20)
[2020-06-29] MEDS ORDERED: ATOR40TA PO (18:20)
[2020-06-29] MEDS ORDERED: LOSA50TA14 PO (18:20)
[2020-06-29] MEDS ORDERED: GLIP5TAB10 PO (18:20)
[2020-06-29] MEDS ORDERED: PROP10TA PO (18:20)
[2020-06-29] MEDS ORDERED: HYDR12.58 PO (18:20)
[2020-06-29] MEDS ORDERED: QUET50TA PO (18:20)
[2020-06-29] MEDS ORDERED: ALLO100T PO (18:20)
--- NOTE | 2020-06-29 18:29 | ER.PDOC ---
General Chief Complaint: Chest Pain-Cardiac Nature Stated Complaint: CHEST PAIN Time seen by MD: 18:22 Source: patient Exam Limitations: no limitations History of Present Illness Initial Comments Chest pain mid chest that started prior to arrival to the ED. Timing/Duration: gone now Severity/Quality: moderate Radiation: no radiation Prior CP/Workup: No Prior Chest Pain Nitro Today/Relief: 0.4 mg x 1, Provided By EMS, Complete Relief Aspirin Today: No Aspirin Today, 325 mg x 1, Provided By EMS Associated Symptoms: shortness of breath Allergies: Coded Allergies: Penicillins (Verified Allergy, Unknown, unknown, 04/13/18) Home Meds Active Scripts Omeprazole Magnesium (PRILOSEC OTC) 20 Mg Tablet.dr, 20 MG PO BID for 10 Days, #20 CAP Prov:RAMILA REYNA MD 11/24/19 Reported Medications Glipizide (GLIPIZIDE) 5 Mg Tablet, 5 MG PO BID, TAB 06/29/20 Quetiapine Fumarate (QUETIAPINE FUMARATE) 50 Mg Tablet, 50 MG PO HS, TAB 06/29/20 Atorvastatin 40MG (LIPITOR 40MG) 40 Mg Tablet, 40 MG PO DAILY24, TAB 06/29/20 Losartan Potassium (LOSARTAN POTASSIUM) 50 Mg Tablet, 50 MG PO DAILY24, TAB 06/29/20 Allopurinol (ALLOPURINOL) 100 Mg Tablet, 100 MG PO DAILY24, TAB 06/29/20 Bupropion Hcl (BUPROPION XL) 300 Mg Tab.er.24h, 300 MG PO DAILY24, TABLET 06/29/20 Propranolol Hcl (PROPRANOLOL HCL) 10 Mg Tablet, 10 MG PO DAILY24, TAB 06/29/20 Hydrochlorothiazide (HYDROCHLOROTHIAZIDE) 12.5 Mg Tablet, 12.5 MG PO DAILY24, TAB 06/29/20 Aspirin (ASPIR 81) 81 Mg Tablet.dr, 81 MG PO DAILY 02/23/14 [place]-3S/Dha/Epa/Fish Oil/D3 (Fish Oil + D3 Softgel) 1 Each Capsule, 1 EACH PO DAILY, CAPSULE 02/23/14 Multivitamin (MULTIVITAMINS) 1 Each Tablet, 1 EACH PO DAILY, TABLET 02/23/14 Cholecalciferol (Vitamin D3) (VITAMIN D-400) 400 Unit Tablet, 400 UNIT PO DAILY, TABLET 02/23/14 Discontinued Reported Medications Citalopram Hydrobromide (CITALOPRAM HBR) 40 Mg Tablet, 40 MG PO DAILY, TABLET 02/23/14 Valsartan/Hydrochlorothiazide (VALSARTAN-HCTZ 80-12.5 MG TAB) 1 Each Tablet, 1 EACH PO DAILY, TABLET 02/23/14 Budesonide (PULMICORT FLEXHALER) 180 Mcg Aer.pow.ba, 180 MCG IH PRN PRN for SHORTNESS OF BREATH 02/23/14 Gabapentin (GABAPENTIN) 300 Mg Capsule, 300 MG PO QID, CAPSULE 02/23/14 Venlafaxine Hcl (VENLAFAXINE HCL ER) 75 Mg Cap.er.24h, 75 MG PO DAILY 02/23/14 Hydrocodone Bit/Acetaminophen ([place] 5-325 TABLET) 1 Each Tablet, 1 EACH PO TID PRN for PAIN, TABLET 02/23/14 Metformin Hcl (METFORMIN HCL) 500 Mg Tablet, 500 MG PO BID, TABLET 02/23/14 Discontinued Scripts Clarithromycin (CLARITHROMYCIN) 500 Mg Tablet, 1 TAB PO BID, #20 TAB Prov:RAMILA REYNA MD 11/24/19 Metronidazole (FLAGYL) 500 Mg Tablet, 500 MG PO TID for 7 Days, #20 TAB Prov:RAMILA REYNA MD 11/24/19 Past Medical History Medical History: CVA/TIA/stroke, diabetes, high cholesterol, hypertension Surgical History: hysterectomy, shoulder, tonsillectomy Family History Significant Family History: no pertinent family hx Social History Smoking: less than 1 pack/day Alcohol Use: none Drug Use: none Constitutional: no symptoms reported EENTM: no symptoms reported Respiratory: see HPI Cardiovascular: see HPI Gastrointestinal: no symptoms reported Genitourinary: no symptoms reported All Other Systems: Reviewed and Negative Physical Exam General Appearance: No Apparent Distress, WD/WN Neck: Non-Tender, Full Range of Motion, Supple, Normal Inspection Respiratory: chest non-tender, lungs clear, normal breath sounds, no respiratory distress, no accessory muscle use Cardiovascular: Normal Peripheral Pulses, Regular Rate, Rhythm, No Edema, No Gallop, No JVD, No Murmur Gastrointestinal: Normal Bowel Sounds, No Organomegaly, No Pulsatile Mass, Non Tender, Soft Extremities: Normal Range of Motion, Non-Tender, Normal Inspection, No Pedal Edema, No Calf Tenderness, Normal Capillary Refill Neurologic/Psychiatric: dye range tender II-XII NML as Tested, No Motor/Sensory Deficits, Alert, Normal Mood/Affect, Oriented x 3 Skin: Normal Color, Warm/Dry Lymphatic: No Adenopathy Results/Orders Results/Orders Orders - KEMI NICHOLS MD Cbc With Auto Diff (06/29/20 18:13) Comprehensive Metabolic Panel (06/29/20 18:13) Creatine Kinase (06/29/20 18:13) Creatine Kinase Mb (06/29/20 18:13) Troponin I (06/29/20 18:13) Probnp B-Type Svp Operations (06/29/20 18:13) PT (06/29/20 18:13) Partial Thromboplastin Time. (06/29/20 18:13) Xr Chest 1v (06/29/20 18:13) Ekg-Routine (06/29/20 18:13) Vital Signs Date Time Temp Pulse Resp B/P (MAP) Pulse Ox O2 Delivery O2 Flow Rate FiO2 06/29/20 18:14 98.2 77 18 129/77 (94) 97 Room Air 06/29/20 18:14 98.2 77 18 06/29/20 18:14 98.2 77 18 97 Laboratory Tests Test 06/29/20 18:30 White Blood Count 7.5 10^3/uL (4.5-11.0) Red Blood Count 3.72 10^6/uL (4.00-5.20) L Hemoglobin 11.4 g/dL (12.0-15.0) L Hematocrit 32.9 % (36.0-46.0) L Mean Corpuscular Volume 88.4 fL (78-100) Mean Corpuscular Hemoglobin 30.6 pg (26-34) Mean Corpuscular Hemoglobin Concent 34.7 g/dL (33-36.5) Red Cell Distribution Width 13.7 % (11.5-14.5) Platelet Count 222 10^3/uL (150-400) Mean Platelet Volume 8.6 fL (7.8-11.0) Neutrophils (%) (Auto) 60.7 % (41.0-85.0) Lymphocytes (%) (Auto) 28.7 % (24.0-44.0) Monocytes (%) (Auto) 8.5 % (5.0-12.0) Neutrophils # (Auto) 4.5 10^3/uL (1.8-7.7) Lymphocytes # (Auto) 2.15 10^3/uL1 (1.0-4.8) Monocytes # (Auto) 0.6 10^3/uL (0.3-0.8) Absolute Immature Granulocyte (auto 0.03 10^3 u/L (0-2) Absolute Eosinophils (auto) 0.1 10^3/uL (0.0-0.2) Immature Granulocytes % 0.40 % (0.00-0.50) Eosinophils % 1.3 % (0.0-5.0) Basophils % 0.4 % (0.0-0.2) H Basophils # 0.0 10^3/uL (0.0-0.1) Prothrombin Time 10.4 SEC (9.3-11.3) Prothrombin Time INR (Non-Therap) 1.0 Activated Partial Thromboplast Time 20.3 SEC (24.67-30.72) Sodium Level 130 mmol/L (132-145) L Potassium Level 5.2 mmol/L (3.6-5.2) Chloride Level 96.0 mmol/L (96-109) Carbon Dioxide Level 23.9 mmol/L (20.0-32) Anion Gap 15.3 Blood Urea Nitrogen 26 mg/dL (7-18) H Creatinine 1.52 mg/dL (0.59-1.40) H Estimated GFR () 40.0 (>/=60) Est GFR (CKD-EPI)(Non-Afr [place]) 33.1 (>/=60) BUN/Creatinine Ratio 17.0 Glucose Level 184 mg/dL (70-110) H Calcium Level 9.2 mg/dL (8.4-10.5) Total Bilirubin 0.4 mg/dL (0.2-1.0) Aspartate Amino Transferase (AST) 15 U/L (0-35) Alanine Aminotransferase (ALT) 22 U/L (12-78) Alkaline Phosphatase 81 U/L (50-136) Total Creatine Kinase 46 U/L (26-192) Creatine Kinase MB 0.8 ng/mL (0.5-3.6) Troponin I < 0.02 ng/mL (0.00-0.05) Pro-B-Type Natriuretic Peptide 142 pg/mL (0-450) Total Protein 7.0 g/dL (6.4-8.2) Albumin 3.4 g/dL (3.4-5.0) Globulin 3.6 Albumin/Globulin Ratio 0.944 EKG/XRAY/CT/US EKG: NSR, no ST T wave changes EKG Comments: HR 75, normal P axis XRAY: chest (No active disease) ER DEPART Departure Time of Disposition: 19:11 Disposition: 01 HOME, SELF-CARE Impression: Primary Impression: Chest pain Condition: Stable Referrals: JESSICA RICARDO (PCP) PRIMARY CARE PROVIDER Comments Admitted to Dr. Suárez Duration or Time Spent with Pa: 60 min Problem Qualifiers Primary Impression: Chest pain Chest pain type: unspecified Qualified Codes: R07.9 - Chest pain, unspecified KEMI NICHOLS MD Jun 29, 2020 18:29
[2020-06-29 18:30] LABS: BASOPHIL % 0.4 % (0.0-0.2); EOSINOPHIL # 0.1 10^3/uL (0.0-0.2); EOSINOPHIL % 1.3 % (0.0-5.0); LYMPHOCYTES # 2.15 10^3/uL1 (1.0-4.8); LYMPHOCYTES % 28.7 % (24.0-44.0); MEAN CORP HGB 30.6 pg (26-34); MONOCYTES # 0.6 10^3/uL (0.3-0.8); MONOCYTES % 8.5 % (5.0-12.0); NEUTROPHIL # 4.5 10^3/uL (1.8-7.7); NEUTROPHILS % 60.7 % (41.0-85.0); PLATELET COUNT 222 10^3/uL (150-400); RED CELL DISTRIBUTION WIDTH 13.7 % (11.5-14.5)
--- NOTE | 2020-06-29 18:39 | DIREP ---
PROCEDURE:CHEST 1 VIEW COMPARISON:None. INDICATIONS:Chest pain FINDINGS: LUNGS/PLEURA:The patient is rotated for this examination. The lungs as visualized are clear. End on vessel identified in the left upper lobe. No pneumonia, heart failure or effusions are seen. No pneumothorax, pneumomediastinum, aortic aneurysm or mediastinal widening is seen. VASCULATURE:Normal. Unremarkable pulmonary vasculature. CARDIAC:Normal. No cardiac silhouette abnormality or cardiomegaly. MEDIASTINUM:Normal. No visible mass or adenopathy. BONES:Normal. No fracture or visible bony lesion. OTHER:Negative. CONCLUSION:No active disease. The patient is rotated for this examination which distorts the mediastinal anatomy. Dictated by: Cornel Dietrich MD on 06/29/2020 at 06:37 PM
--- NOTE | 2020-06-29 19:00 | NUR ---
BATHROOM PT TO BATHROOM VIA WHEELCHAIR AT THIS TIME. PT STATES PAIN AT 0.
[2020-06-29 19:02] LABS: ALANINE AMINOTRANSFERASE(ML) 22 U/L (12-78); ALKALINE PHOSPHATASE 81 U/L (50-136); ASPARTATE AMINO TRANSFERASE 15 U/L (0-35); CALCIUM 9.2 mg/dL (8.4-10.5); CARBON DIOXIDE 23.9 mmol/L (20.0-32); GLUCOSE 184 mg/dL (70-110)
--- NOTE | 2020-06-29 19:05 | NUR ---
ROOM PT BACK TO ROOM VIA WHEELCHAIR, CONNECTED TO MONITORS. PT CONTINUES TO RATE PAIN 0/10.
--- NOTE | 2020-06-29 19:07 | NUR ---
HOSPITALIST DR. NICHOLS ON PHONE WITH HOSPITALIST REGARDING PT ADMISSION AT THIS TIME.
[2020-06-29 19:08] VITALS: BP 122/76
--- NOTE | 2020-06-29 19:50 | NUR ---
[facility]SUR[facility] PT TAKEN TO MEDSURG VIA WHEELCHAIR. REPORT GIVEN TO [facility]. PT'S HOME MEDS SENT HOME WITH FAMILY.
[2020-06-29 20:00] VITALS: BP 121/71
[2020-06-29 20:04] VITALS: BP 127/73
[2020-06-29] MEDS ORDERED: INDERAL PO SCH (20:30)
[2020-06-29] MEDS ORDERED: COZAAR PO SCH (20:30)
[2020-06-29] MEDS ORDERED: WELLBUTRIN XL PO SCH (20:30)
[2020-06-29] MEDS ORDERED: LIPITOR PO SCH (20:30)
--- NOTE | 2020-06-29 20:38 | PCM.HP ---
History of Present Illness Hx of Present Illness 79-year-old female with past medical history for 5 CVAs,Diabetes type 2, hypertension, hyperlipidemia who presents to ER due to acute onset of chest pain as well as altered mental status. Per the patient patient states that patient has had a history of 5 strokes in the past which has made it difficult for patient to remember certain things. Patient does remember that this morning patient was having severe headache and felt off "" as well as was having chest pain, severe chest point to the point that patient that she was having a heart attack. Patient otherwise denies any weakness, fevers, chills, shortness of breath. Patient states by the time that patient arrived in the ER patient no longer had any chest pain or any altered mental status. Patient states that it seems that her symptoms had resolved. Past medical history: Previous CVAs 5 times, hypertension, Diabetes type 2, hyperlipidemia, gout Surgeries: Hysterectomy, breast biopsies Family history: Noncontributory Social history: Patient current smoker smokes 1 to 2 cigarettes a day, denies any alcohol or illicit drug use Allergies: Allergic to penicillin Travel History EBOLA RISK:Travel to/contact w: No Review of Systems Constitutional: No: Fever, Chills, Sweats, Weakness Respiratory: No: Cough, Dry, Shortness of breath Cardiovascular: Chest Pain; No: Palpitations Gastrointestinal: Abdominal Pain, Constipation; No: Nausea, Vomiting Genitourinary: No Dysuria, No Frequency Skin: No: Rash, Lesions Neurological: Confusion; No: Weakness, Change in speech Allergies: Coded Allergies: Penicillins (Verified Allergy, Unknown, unknown, 04/13/18) Scheduled Allopurinol (Allopurinol), 100 MG PO DAILY24, (Reported) Aspirin (Aspir 81), 81 MG PO DAILY, (Reported) Atorvastatin 40MG (Lipitor 40MG), 40 MG PO DAILY24, (Reported) Bupropion Hcl (Bupropion Xl), 300 MG PO DAILY24, (Reported) Cholecalciferol (Vitamin D3) (Vitamin D-400), 400 UNIT PO DAILY, (Reported) Glipizide (Glipizide), 5 MG PO BID, (Reported) Hydrochlorothiazide (Hydrochlorothiazide), 12.5 MG PO DAILY24, (Reported) Losartan Potassium (Losartan Potassium), 50 MG PO DAILY24, (Reported) Multivitamin (Multivitamins), 1 EACH PO DAILY, (Reported) [place]-3S/Dha/Epa/Fish Oil/D3 (Fish Oil + D3 Softgel), 1 EACH PO DAILY, (Reported) Omeprazole Magnesium (Prilosec Otc), 20 MG PO BID Propranolol Hcl (Propranolol Hcl), 10 MG PO DAILY24, (Reported) Quetiapine Fumarate (Quetiapine Fumarate), 50 MG PO HS, (Reported) Discontinued Medications Budesonide (Pulmicort Flexhaler), 180 MCG IH PRN PRN for SHORTNESS OF BREATH, (Reported) Discontinued Reason: No Longer Taking Citalopram Hydrobromide (Citalopram Hbr), 40 MG PO DAILY, (Reported) Discontinued Reason: No Longer Taking Clarithromycin (Clarithromycin), 1 TAB PO BID Discontinued Reason: No Longer Taking Gabapentin (Gabapentin), 300 MG PO QID, (Reported) Discontinued Reason: No Longer Taking Hydrocodone Bit/Acetaminophen ([place] 5-325 Tablet), 1 EACH PO TID PRN for PAIN, (Reported) Discontinued Reason: No Longer Taking Metformin Hcl (Metformin Hcl), 500 MG PO BID, (Reported) Discontinued Reason: No Longer Taking Metronidazole (Flagyl), 500 MG PO TID Discontinued Reason: No Longer Taking Valsartan/Hydrochlorothiazide (Valsartan-Hctz 80-12.5 Mg Tab), 1 EACH PO DAILY, (Reported) Discontinued Reason: HOLD Venlafaxine Hcl (Venlafaxine Hcl Er), 75 MG PO DAILY, (Reported) Discontinued Reason: No Longer Taking VTE VTE Risk Total Score: 3 VTE Risk Score VTE Risk: Score 0-1 = Low Risk (Aggressive mobilization; early ambulation; no VTE prophylaxis required) Score 2: Moderate Risk (Intermittent/Pneumatic Compression Device OR Lovenox/Heparin/Coumadin) Score 3-4: High Risk (Intermittent/Pneumatic Compression Device AND Lovenox/Heparin/Coumadin) Score > or =5: Highest Risk (Intermittent/Pneumatic Compression Device AND Lovenox/Heparin/Coumadin) Antico:Hep/LMWH/Coum/Xarelto: Yes Mechanical device ordered: Yes VTE VTE Present on Admission: No Currently receiving anticoagul: No VTE Risk Total Score: 3 Antico:Hep/LMWH/Coum/Xarelto: Yes Mechanical device ordered: Yes Exam Vital Signs Vital Signs Date Time Temp Pulse Resp B/P (MAP) Pulse Ox O2 Delivery O2 Flow Rate FiO2 06/29/20 20:04 74 18 127/73 (91) 96 Room Air 06/29/20 18:14 98.2 General Appearance: Alert, Oriented X3, Cooperative, No acute distress HEENT: Atraumatic, PERRLA, EOMI Respiratory: Clear to auscultation, Normal air movement Cardiovascular: Regular rate, Normal S1, Normal S2, No murmurs Abdominal: Normal bowel sounds, Soft, No tenderness Extremities: No clubbing, No cyanosis, No edema Skin: No rash, No breakdown, No lesions Neuro: Normal gait, Normal speech, Strength at 5/5 X4 ext, Normal tone, Sensation intact, Cranial nerves 3-12 NL Psych/Mental Status: Mental status NL, Mood NL Assessment/Plan Assessment/Plan Assessment/Plan 79-year-old female with past medical history for multiple CVAs, hypertension, hyperlipidemia, diabetes admitted for observation due to concern for chest pain possible Cardiologic pathology as well as altered mental status concern for possible CVA Chest pain Trend troponin EKG EKG normal sinus rhythm Troponins so far 1 - Altered mental status Ordered CT head without contrast Patient on statin and aspirin Hypertension Restart medication Cardiac diet Diabetes Patient on oral diabetes medicine will hold Sliding scale insulin Disposition: If patient's troponins trend and all 3 are negative. EKG and telemetry continues to be sinus rhythm. And CT head without contrast is normal we will plan to discharge in the morning. Patient History: Diabetes mellitus 34 FATHER FH: cancer 32 MOTHER FH: heart attack 34 FATHER OLIVIA SINGH MD Jun 29, 2020 20:38
[2020-06-29] MEDS ORDERED: SEROQUEL PO SCH (21:00)
[2020-06-29] MEDS: HUMALOG SQ SCH (21:00)
--- NOTE | 2020-06-29 21:02 | DIREP ---
PROCEDURE:CT HEAD OR BRAIN W/O CONTRAST COMPARISON:[facility], CT, CT HEAD BRAIN W/O CONTRAST, 11/24/2019, 09:44 PM. INDICATIONS:AMS TECHNIQUE:CT images were created without intravenous contrast. FINDINGS: VENTRICLES:No hydrocephalus or midline shift. CEREBRUM:Moderate enlargement of the cerebral sulci and fissures. Multiple areas of decreased density in the deep white matter of each hemisphere. CEREBELLUM:Negative. BRAINSTEM:Negative. BASAL CISTERNS:Negative. SKULL:Normal. No fractures. SINUSES:Normal. OTHER:No acute intracranial hemorrhage, large territorial infarct, abnormal extra-axial fluid collection, or CT evidence of acute cortical infarct. There is calcification of the intracranial portions of both internal carotid and both vertebral arteries. CONCLUSION: 1. Moderate age-related cerebral volume loss, intracranial arterial calcification, and moderate leukoariosis. 2. No acute pathology on noncontrast CT of the head. No significant change from the prior exam. Dictated by: Dariusz Kay M.D. on 06/29/2020 at 08:59 PM
[2020-06-30 00:50] VITALS: BP 106/66
[2020-06-30 04:27] VITALS: BP 99/63
[2020-06-30 06:02] LABS: BASOPHIL # 0.1 10^3/uL (0.0-0.1); BASOPHIL % 0.7 % (0.0-0.2); EOSINOPHIL # 0.1 10^3/uL (0.0-0.2); EOSINOPHIL % 1.9 % (0.0-5.0); LYMPHOCYTES # 2.54 10^3/uL1 (1.0-4.8); LYMPHOCYTES % 36.8 % (24.0-44.0); MEAN CORP HGB 31.3 pg (26-34); MONOCYTES # 0.7 10^3/uL (0.3-0.8); MONOCYTES % 10.4 % (5.0-12.0); NEUTROPHIL # 3.4 10^3/uL (1.8-7.7); NEUTROPHILS % 49.8 % (41.0-85.0); RED CELL DISTRIBUTION WIDTH 13.8 % (11.5-14.5)
[2020-06-30 06:29] LABS: ALKALINE PHOSPHATASE 72 U/L (50-136); ASPARTATE AMINO TRANSFERASE 14 U/L (0-35); CALCIUM 9.4 mg/dL (8.4-10.5); CARBON DIOXIDE 24.6 mmol/L (20.0-32); GLUCOSE 185 mg/dL (70-110)
[2020-06-30 06:49] LABS: ALANINE AMINOTRANSFERASE(ML) 21 U/L (12-78)
[2020-06-30 07:16] VITALS: BP 110/70
[2020-06-30] MEDS: HUMALOG SQ SCH ×2 (07:30→11:38)
[2020-06-30] MEDS ORDERED: HYDROCHLOROTHIAZIDE PO SCH (09:00)
[2020-06-30] MEDS ORDERED: ASPIRIN EC PO SCH (09:00)
[2020-06-30] MEDS ORDERED: ASPIRIN ONE (10:09)
[2020-06-30 10:56] VITALS: BP 123/73
--- NOTE | 2020-06-30 12:14 | PRM.DC ---
DC Summary Final Dx: Problems Medical Problems: (1) Chest pain Status: Acute ICD Codes: R07.9 - Chest pain, unspecified SNOMED: 93121433 Responsible Provider: Abhi Sanchez MBA, MD - ED Problem Recorded: Jun 29, 2020 19:12 Last Edited By: Abhi Sanchez MBA, MD - ED on Jun 29, 2020 19:14 (2) Fracture of right distal radius Status: Acute ICD Codes: S52.501A - Unsp fracture of the lower end of right radius, init SNOMED: 997635348 Problem Recorded: Oct 05, 2014 01:43 (3) H. pylori duodenitis Status: Acute ICD Codes: K29.80 - Duodenitis without bleeding; B96.81 - Helicobacter pylori [H. pylori] as the cause of diseases classified elsewhere SNOMED: 639588772 Responsible Provider: NERI HADDAD MD Problem Recorded: Nov 22, 2019 21:46 Last Edited By: Neri Haddad Md- Hospitalist on Nov 23, 2019 16:01 (4) Right leg DVT Status: Acute ICD Codes: I82.401 - Acute embolism and thombos unsp deep veinsof r low extrem SNOMED: 378858876 Responsible Provider: Reymundo Morin MD Problem Recorded: Feb 23, 2014 23:08 Last Edited By: Reymundo Morin MD on Feb 23, 2014 23:08 HPI/Course 79-year-old female with past medical history for 5 CVAs,Diabetes type 2, hypert ension, hyperlipidemia who presents to ER due to acute onset of chest pain as well as altered mental status. Per the patient patient states that patient has had a history of 5 strokes in the past which has made it difficult for patient to remember certain things. Patient does remember that this morning patient was having severe headache and felt off "" as well as was having chest pain, severe chest point to the point that patient that she was having a heart attack. Patient otherwise denies any weakness, fevers, chills, shortness of breath. Patient states by the time that patient arrived in the ER patient no longer had any chest pain or any altered mental status. Patient states that it seems that her symptoms had resolved. Past medical history: Previous CVAs 5 times, hypertension, Diabetes type 2, hyperlipidemia, gout Surgeries: Hysterectomy, breast biopsies Family history: Noncontributory Social history: Patient current smoker smokes 1 to 2 cigarettes a day, denies any alcohol or illicit drug use Allergies: Allergic to penicillin Lab/Doc/BBK/Rad Laboratory Tests Test 06/29/20 18:30 06/30/20 05:19 06/30/20 07:42 06/30/20 10:42 White Blood Count 7.5 10^3/uL 6.9 10^3/uL Red Blood Count 3.72 10^6/uL 3.55 10^6/uL Hemoglobin 11.4 g/dL 11.1 g/dL Hematocrit 32.9 % 32.0 % Mean Corpuscular Volume 88.4 fL 90.1 fL Mean Corpuscular Hemoglobin 30.6 pg 31.3 pg Mean Corpuscular Hemoglobin Concent 34.7 g/dL 34.7 g/dL Red Cell Distribution Width 13.7 % 13.8 % Platelet Count 222 10^3/uL 197 10^3/uL Mean Platelet Volume 8.6 fL 8.8 fL Neutrophils (%) (Auto) 60.7 % 49.8 % Lymphocytes (%) (Auto) 28.7 % 36.8 % Monocytes (%) (Auto) 8.5 % 10.4 % Neutrophils # (Auto) 4.5 10^3/uL 3.4 10^3/uL Lymphocytes # (Auto) 2.15 10^3/uL1 2.54 10^3/uL1 Monocytes # (Auto) 0.6 10^3/uL 0.7 10^3/uL Absolute Immature Granulocyte (auto 0.03 10^3 u/L 0.03 10^3 u/L Absolute Eosinophils (auto) 0.1 10^3/uL 0.1 10^3/uL Immature Granulocytes % 0.40 % 0.40 % Eosinophils % 1.3 % 1.9 % Basophils % 0.4 % 0.7 % Basophils # 0.0 10^3/uL 0.1 10^3/uL Prothrombin Time 10.4 SEC Prothrombin Time INR (Non-Therap) 1.0 Activated Partial Thromboplast Time 20.3 SEC Sodium Level 130 mmol/L 133 mmol/L Potassium Level 5.2 mmol/L 4.4 mmol/L Chloride Level 96.0 mmol/L 98.0 mmol/L Carbon Dioxide Level 23.9 mmol/L 24.6 mmol/L Anion Gap 15.3 14.8 Blood Urea Nitrogen 26 mg/dL 29 mg/dL Creatinine 1.52 mg/dL 1.51 mg/dL Estimated GFR () 40.0 40.3 Est GFR (CKD-EPI)(Non-Afr Greek) 33.1 33.3 BUN/Creatinine Ratio 17.0 19.0 Glucose Level 184 mg/dL 185 mg/dL Calcium Level 9.2 mg/dL 9.4 mg/dL Total Bilirubin 0.4 mg/dL 0.5 mg/dL Aspartate Amino Transf (AST/SGOT) 15 U/L 14 U/L Alanine Aminotransferase (ALT/SGPT) 22 U/L 21 U/L Alkaline Phosphatase 81 U/L 72 U/L Total Creatine Kinase 46 U/L Creatine Kinase MB 0.8 ng/mL Troponin I < 0.02 ng/mL < 0.02 ng/mL Pro-B-Type Natriuretic Peptide 142 pg/mL Total Protein 7.0 g/dL 6.4 g/dL Albumin 3.4 g/dL 3.3 g/dL Globulin 3.6 3.1 Albumin/Globulin Ratio 0.944 1.064 Bedside Glucose 154 347 Vitals/I&O VS - Last 72 Hours, by Label Date Time Temp Pulse Resp B/P (MAP) Pulse Ox O2 Delivery O2 Flow Rate FiO2 06/30/20 10:56 97.6 79 18 123/73 (90) 92 Room Air 06/30/20 10:14 110/70 06/30/20 07:16 98.2 74 16 110/70 (83) 96 Room Air 06/30/20 04:27 97.6 65 16 99/63 (75) 92 Room Air Nasal [place] 06/30/20 00:50 97.9 62 17 106/66 (79) 93 Room Air 06/29/20 21:48 Room Air 06/29/20 21:22 121/71 06/29/20 20:04 74 18 127/73 (91) 96 Room Air 06/29/20 20:00 98.1 73 18 121/71 (88) 95 Room Air 06/29/20 19:08 74 18 122/76 (91) 96 Room Air 06/29/20 18:14 98.2 77 18 129/77 (94) 97 Room Air 06/29/20 18:14 98.2 77 18 06/29/20 18:14 98.2 77 18 97 Scheduled Allopurinol (Allopurinol), 100 MG PO DAILY24, (Reported) Aspirin (Aspir 81), 81 MG PO DAILY, (Reported) Atorvastatin 40MG (Lipitor 40MG), 40 MG PO DAILY24, (Reported) Bupropion Hcl (Bupropion Xl), 300 MG PO DAILY24, (Reported) Cholecalciferol (Vitamin D3) (Vitamin D-400), 400 UNIT PO DAILY, (Reported) Glipizide (Glipizide), 5 MG PO BID, (Reported) Hydrochlorothiazide (Hydrochlorothiazide), 12.5 MG PO DAILY24, (Reported) Losartan Potassium (Losartan Potassium), 50 MG PO DAILY24, (Reported) Multivitamin (Multivitamins), 1 EACH PO DAILY, (Reported) [place]-3S/Dha/Epa/Fish Oil/D3 (Fish Oil + D3 Softgel), 1 EACH PO DAILY, (Reported) Omeprazole Magnesium (Prilosec Otc), 20 MG PO BID Propranolol Hcl (Propranolol Hcl), 10 MG PO DAILY24, (Reported) Quetiapine Fumarate (Quetiapine Fumarate), 50 MG PO HS, (Reported) Discontinued Medications Budesonide (Pulmicort Flexhaler), 180 MCG IH PRN PRN for SHORTNESS OF BREATH, (Reported) Discontinued Reason: No Longer Taking Citalopram Hydrobromide (Citalopram Hbr), 40 MG PO DAILY, (Reported) Discontinued Reason: No Longer Taking Clarithromycin (Clarithromycin), 1 TAB PO BID Discontinued Reason: No Longer Taking Gabapentin (Gabapentin), 300 MG PO QID, (Reported) Discontinued Reason: No Longer Taking Hydrocodone Bit/Acetaminophen ([place] 5-325 Tablet), 1 EACH PO TID PRN for PAIN, (Reported) Discontinued Reason: No Longer Taking Metformin Hcl (Metformin Hcl), 500 MG PO BID, (Reported) Discontinued Reason: No Longer Taking Metronidazole (Flagyl), 500 MG PO TID Discontinued Reason: No Longer Taking Valsartan/Hydrochlorothiazide (Valsartan-Hctz 80-12.5 Mg Tab), 1 EACH PO DAILY, (Reported) Discontinued Reason: HOLD Venlafaxine Hcl (Venlafaxine Hcl Er), 75 MG PO DAILY, (Reported) Discontinued Reason: No Longer Taking Sepsis Reassessment @ [facility] 06/30/20 04:29 Condition/Impression Review of Systems Constitutional: No: Fever, Chills, Sweats, Weakness Respiratory: No: Cough, Dry, Shortness of breath Cardiovascular: Chest Pain; No: Palpitations Gastrointestinal: Abdominal Pain, Constipation; No: Nausea, Vomiting Genitourinary: No Dysuria, No Frequency Skin: No: Rash, Lesions Neurological: Confusion; No: Weakness, Change in speech Exam General Appearance: Alert, Oriented X3, Cooperative, No acute distress HEENT: Atraumatic, PERRLA, EOMI Respiratory: Clear to auscultation, Normal air movement Cardiovascular: Regular rate, Normal S1, Normal S2, No murmurs Abdominal: Normal bowel sounds, Soft, No tenderness Extremities: No clubbing, No cyanosis, No edema Skin: No rash, No breakdown, No lesions Neuro: Normal gait, Normal speech, Strength at 5/5 X4 ext, Normal tone, Sensation intact, Cranial nerves 3-12 NL Psych/Mental Status: Mental status NL, Mood NL Discharge Plan 79-year-old female with past medical history for multiple CVAs, hypertension, hyperlipidemia, diabetes admitted for observation due to concern for chest pain possible Cardiologic pathology as well as altered mental status concern for possible CVA Chest pain Trend troponin EKG EKG normal sinus rhythm Troponins negative x 3- Altered mental status Ordered CT head without contrast - results unremarkable no acute cchanges Patient on statin and aspirin Hypertension Restart medication Cardiac diet Diabetes Patient on oral diabetes medicine will hold Sliding scale insulin Disposition: Patient's troponins trend and all 3 are negative. EKG and telemetry continues to be sinus rhythm. And CT head without contrast is normal we will discharge Prescription/RX: Active Scripts Active Prilosec Otc (Omeprazole Magnesium) 20 Mg Tablet.dr 20 Mg PO BID 10 Days Reported Glipizide 5 Mg Tablet 5 Mg PO BID Quetiapine Fumarate 50 Mg Tablet 50 Mg PO HS Lipitor 40MG (Atorvastatin Calcium) 40 Mg Tablet 40 Mg PO DAILY24 Losartan Potassium 50 Mg Tablet 50 Mg PO DAILY24 Allopurinol 100 Mg Tablet 100 Mg PO DAILY24 Bupropion Xl (Bupropion Hcl) 300 Mg Tab.er.24h 300 Mg PO DAILY24 Propranolol Hcl 10 Mg Tablet 10 Mg PO DAILY24 Hydrochlorothiazide 12.5 Mg Tablet 12.5 Mg PO DAILY24 Aspir 81 (Aspirin) 81 Mg Tablet.dr 81 Mg PO DAILY Fish Oil + D3 Softgel ([place]-3S/Dha/Epa/Fish Oil/D3) 1 Each Capsule 1 Each PO DAILY Multivitamins (Multivitamin) 1 Each Tablet 1 Each PO DAILY Vitamin D-400 (Cholecalciferol (Vitamin D3)) 400 Unit Tablet 400 Unit PO DAILY OLIVIA SINGH MD Jun 30, 2020 12:14
[2020-06-30 12:45] VITALS: BP 123/73
--- NOTE | 2020-06-30 13:40 | NUR ---
D/C D/C INSTRUCTION GIVEN TO PT ON FOLLOWING UP WITH PCP, CARDIAC DIET, AND ACTIVITY TOLERATED. VERBALIZED AND WRITTEN UNDERSTANDING RECEIVED. NO S/S OF DISTRESS NOTED. IV D/C'D PER ASEPTIC TECHNIQUE, NO S/S OF INFECTION NOTED TO SITE. PT OFF OF UNIT VIA W/C TO GO HOME IN PRIVATE VEHICLE. RELINQUISHED CARE OF PT.
== END 2020-06-30 13:20 | disposition home or self-care (01) ==
LOC: ER 18:02 → EDBD 18:02 → MS 19:12
PROVIDERS: ADMIT Family Medicine; ATTEND Family Medicine
DX: R07.89 Other chest pain (principal); I10 Essential (primary) hypertension; E11.9 Type 2 diabetes mellitus without complications; R41.82 Altered mental status, unspecified; E78.00 Pure hypercholesterolemia, unspecified; E78.5 Hyperlipidemia, unspecified; I25.2 Old myocardial infarction; M10.9 Gout, unspecified; F17.210 Nicotine dependence, cigarettes, uncomplicated; Z86.73 Personal history of transient ischemic attack (TIA), and cerebral infarction without residual deficits; Z79.899 Other long term (current) drug therapy; Z88.0 Allergy status to penicillin; Z90.710 Acquired absence of both cervix and uterus; Z79.82 Long term (current) use of aspirin
CPT/HCPCS: 36415 ×2; 70450; 71045; 80053 ×2; 82550; 82553; 82948; 83880; 84484 ×2; 85025 ×2; 85610; 85730; 93005; 99285; G0378 ×3